=== PATIENT | female | born 1955 | race Caucasian/White ===

== ENCOUNTER 2017-02-13 11:07 | Emergency (ER) | payer SELFPAY ==
[2017-02-13 11:31] VITALS: BP 117/62
[2017-02-13] MEDS ORDERED: Aspirin Low Dose CHEW TAB* 81 MG PO ONE (11:43)
--- NOTE | 2017-02-13 15:01 | UC ---
Erin Trent SooYoung, scribed for Stefanie Beth MD on 02/13/17 at 1137 . Upper Extremity HPI - HPI Summary HPI Summary: A 61 y/o F [place] [facility] [place] c/o fall onset two weeks ago. Pt is from [place], speaks Sinhala, and son is present and assisting with additional translation. Two weeks ago, the pt's neighbor contacted pt's son, and said pt was ill. Associated sx: L shoulder pain since fall, urinary frequency for past two weeks, mild chills. Denies fever, CP, palpitations, diarrhea, constipation, melena. Pt states she fell to her left due to weakness, dizziness and was unable to get up. Denies LOC. She was going about her ADL prior to episode. Pt refused to go to the hospital at the time of the incident. She last saw her doctor approx 3 years ago, she does not have a PCP in [place]. Pt is a former lifetime smoker, quit last year. - History of Current Complaint Chief Complaint: UCUpperExtremity Stated Complaint: LEG AND ARM INJURY Time Seen by Provider: 02/13/17 11:24 Hx Obtained From: Patient, Family/Addictions Recovery Specialist - son Onset/Duration: Sudden Onset, Lasting Weeks - approx two, Still Present Severity Currently: Severe Pain Intensity: 8 Pain Scale Used: 0-10 Numeric Location Of Pain: Is Discrete @ - L shoulder Character: Aching, Throbbing, Burning - Allergies/Home Medications Allergies/Adverse Reactions: Allergies Allergy/AdvReac Type Severity Reaction Status Date / Time No Known Allergies Allergy Verified 02/13/17 14:25 PMH/Surg Hx/FS Hx/Imm Hx Previously Healthy: Yes - neg: COPD, DM, HTN, hyperthyroid - Surgical History Surgical History: None - Family History Known Family History: Negative: Cardiac Disease, Other - neg: CVA - Social History Alcohol Use: None Substance Use Type: None Smoking Status (MU): Former Smoker - lifetime smoker, quit last year Review of Systems Constitutional: Chills - mild Skin: Negative Eyes: Negative ENT: Negative Respiratory: Negative Cardiovascular: Negative Gastrointestinal: Negative Genitourinary: Frequency Motor: Negative Neurovascular: Negative Musculoskeletal: Other: - L shoulder pain Neurological: Weakness - or dizziness, possible cause of the fall Psychological: Negative All Other Systems Reviewed And Are Negative: Yes Physical Exam Triage Information Reviewed: Yes Appearance: Well-Appearing, Thin Vital Signs: Initial Vital Signs Temp 99.4 F 02/13/17 11:22 Pulse 72 02/13/17 11:22 Resp 18 02/13/17 11:22 BP 117/62 02/13/17 11:22 Pulse Ox 97 02/13/17 11:22 Vital Signs Reviewed: Yes Eye Exam: Normal ENT Exam: Normal ENT: Positive: Normal ENT inspection, Hearing grossly normal, Pharynx normal Neck exam: Normal Neck: Positive: Supple, Nontender Respiratory Exam: Normal Respiratory: Positive: Chest non-tender, Lungs clear, Normal breath sounds, No respiratory distress, No accessory muscle use Cardiovascular Exam: Normal Cardiovascular: Positive: RRR, No Murmur, Pulses Normal, Brisk Capillary Refill Abdominal Exam: Normal Abdomen Description: Positive: Nontender, No Organomegaly, Soft Bowel Sounds: Positive: Present Musculoskeletal: Positive: Other: - R axillary nerve sensation present. DP/PT 1 + equal bilat. Distal, radial and ulnar pulses present bilat. LUE: 4+ hand grasp , OK sign 5 index. LLE: Gait slow not wide base, L foot flops a bit. Neurological Exam: Other - CN 1 - 12 intact, incl + sens alcohol swab. No diplopia. DTR's 2+ equal P / BR / R Moves all ext's. Distal sens LT present x 4 ext's. Denies B/B issues. Gait steady. Psychological Exam: Normal - conversing easily and appropriately Skin Exam: Normal - no visible or reported rash Diagnostics - EKG Cardiac Rate: NL - 74 bpm Cardiac Rhythm: Sinus: Normal - NJ 151, QTC 494. No old EKG for comparison. Upper Extremity Course/Dx - Course Course Of Treatment: EMS offered and encouraged. But family (son present) declined EMS, will drive pt to ED. D/w SOLEDAD Ruiz. Aspirin 324mg po x 1. Diff dx includes (albeit not limited to), stroke / mass, cardiac, electrolyte issues. I am concerned additionally re left arm, possible injury 2/2 fall (?). - Differential Dx/Diagnosis Provider Diagnoses: Left side weakness. Left arm pain - Physician Notification/Consults Discussed Patient Care With: Daiana Ford - PARMJIT ROWE Time Discussed With Above Provider: 11:48 Instructed by Provider To: Transfer Discharge - Discharge Plan Condition: Stable Disposition: TRANS HIGHER LVL OF CARE FAC Discharge Disposition Comment: Trans to [facility] Referrals: Non Staff,Doctor [Primary Care Provider] - Additional Instructions: Please follow up with your primary care provider in 1-2 weeks. Seek medical attention for worse or new problems in the meantime. The documentation as recorded by the Erin munson SooYoung accurately reflects the service I personally performed and the decisions made by me, Stefanie Beth MD.
== END 2017-02-13 12:36 | disposition short-term general hospital (02) ==
LOC: UCEAST 11:07
DX: M62.81 Muscle weakness (generalized) (principal); M79.602 Pain in left arm; Z87.891 Personal history of nicotine dependence
CPT/HCPCS: 93005; 99202; A9270-GY; G0463

== ENCOUNTER 2017-02-13 12:40 | Inpatient (IN) | payer SELFPAY ==
--- NOTE | 2017-02-13 13:50 | RAD ---
Indication: Dizziness. Fall 3 weeks ago. LEFT body pain. Comparison: No relevant prior exams available on the [facility] PACS for comparison. Technique: Noncontrast CT vertex of skull through foramen magnum. Report: There is a RIGHT frontoparietal extra-axial fluid heterogeneous density fluid collection which crosses the coronal suture consistent with subdural hematoma. Associated mass effect primarily involving the RIGHT frontal lobe with partial effacement of the RIGHT lateral ventricle and up to 0.7 cm leftward midline shift at the level of the septum pellucidum. The basal cisterns remain patent without suggestion of downward herniation. No additional extra or intra-axial hemorrhage evident. Negative for thompson matter white matter obscuration. Unremarkable partially visualized orbital contents. Negative for calvarial or skull base fracture or suspicious focal lesion. Clear visualized paranasal sinuses and mastoid air spaces. Negative for scalp hematoma. IMPRESSION: Corresponding with the clinical history of fall 3 weeks ago there is a subacute RIGHT frontoparietal subdural hematoma with mass effect primarily involving the RIGHT frontal lobe with partial effacement of the RIGHT lateral ventricle and up to 0.7 cm leftward midline shift at the level of the septum pellucidum. Results discussed with Dr. Granados 02/13/2017 1:46 PM EDT
[2017-02-13 14:01] LABS: Hematocrit 34 % (35-47); Hemoglobin 12.3 g/dl (12.0-16.0); Mean Corpuscular HGB Conc 37 g/dl (31-36); Mean Corpuscular Hemoglobin 35 pg (27-31); Mean Corpuscular Volume 94 fL (80-97); Mean Platelet Volume 7 um3 (7.4-10.4); Red Blood Count 3.57 10^6/ul (4.0-5.4); Red Cell Distribution Width 14 % (10.5-15); White Blood Count 8.9 10^3/ul (3.5-10.8)
[2017-02-13 14:07] LABS: Comments Flag Yes
[2017-02-13 14:08] LABS: Add Diff/Slide Review? Slide Review Added
[2017-02-13 14:19] LABS: ALT 25 U/L (7-52); AST 31 U/L (13-39); Albumin 4.3 g/dL (3.2-5.2); Alkaline Phosphatase 50 U/L (34-104); Anion Gap 7 mmol/L (2-11); BUN/Creatinine Ratio 9.8 (8-20); Blood Urea Nitrogen 5 mg/dL (6-24); CO2 Carbon Dioxide 29 mmol/L (22-32); Calcium 9.2 mg/dL (8.6-10.3); Chloride 102 mmol/L (101-111); EGFR African American 157.1 (>60); EGFR Non-African American 122.2 (>60); Globulin 2.8 g/dL (2-4); Glucose 94 mg/dL (70-100); Magnesium 1.8 mg/dL (1.9-2.7); Potassium 3.8 mmol/L (3.5-5.0); Sodium 138 mmol/L (133-145); Total Protein 7.1 g/dL (6.4-8.9)
[2017-02-13 14:39] LABS: Alcohol < 10 mg/dL (<10)
[2017-02-13 14:48] LABS: TSH (Thyroid Stimulating Horm) 1.88 mcIU/mL (0.34-5.60)
--- NOTE | 2017-02-13 15:04 | RAD ---
INDICATION: Left shoulder injury COMPARISON: None TECHNIQUE: Routine frontal, Y and axial views were obtained. FINDINGS: The bony structures, joint spaces, and soft tissues are normal for age. IMPRESSION: NO ACUTE BONY FINDINGS.
--- NOTE | 2017-02-13 15:05 | RAD ---
Indication: RIGHT hip pain post fall 3 weeks ago. Comparison: No relevant prior exams available on the [facility] PACS for comparison. Technique: AP pelvis and AP and frog-leg lateral views RIGHT hip. Report: The RIGHT hip is normally aligned. No hip or pelvic fracture or joint diastases evident. Preserved hip joint spaces without significant arthropathic change. Unremarkable soft tissue contours. Peripheral vascular calcifications. IMPRESSION: No radiographic evidence for RIGHT hip fracture or other traumatic injury. As x-rays may be negative with nondisplaced hip fracture if there is persistent clinical concern MRI or in setting of contraindication to MRI or limitation in emergent access to MRI CT would be suggested.
--- NOTE | 2017-02-13 15:46 | CONSULT ---
Consult Consult: Neurosurgery consult: Date of consult: 02/13/17 Reason for consult: Right frontal subdural hematoma Referring provider: Dr. Slava Granados HPI: This is a 61 year old female with unknown past medical history who primarily resides in [place]. She recently arrived in the [place] after her son and daughter were notified of her recently falling by a neighbor. She was refusing to go to the hospital in [place] and therefore her children sent her a plane ticket to the [place]. She reports one fall 3 weeks ago and a few more falls since then. Since the first fall, she reports left upper and lower extremity weakness, difficulty walking prompting her to use a cane for support, episodes of dizziness and left shoulder pain. She also describes urinatry incontinence for the past several weeks in that she is able to feel the urge to urinate but is unable to make it to the bathroom. No fecal incontinence. The episodes of dizziness begin with a feeling of right sided head pressure that travels across the frontal head. She is unable to describe frequency of these episodes. Her children express significant concern with her safety. She denies headache, neck pain, vision changes, hearing changes, difficulty swallowing, changes in speech, chest pain, difficulty breathing, abdominal pain, nausea, vomiting, and numbness and tingling in the upper and lower extremities. Past Medical History: No known medical problems. She has not been to a primary care provider in years. Allergies: No known allergies. Home medications: None. Social history: The patient lives primarily in [place] with her boyfriend. Her son and daughter live in the [place]. She primarily speaks Macedonian although is fluent in Syriac as well. She is a former smoker, stating that she has not smoked in years although is unable to determine how many years she did smoke. Per the patient she drinks a few beers a day and per the son and daughter , she drinks 12-18 beers a day. Family history: Unknown ROS: Full ROS completed. All pertinent findings stated in HPI, all others negative. Physical exam: Vital Signs: Temp Pulse Resp BP Pulse Ox 97.4 F 76 15 110/46 97 02/13/17 12:48 02/13/17 16:00 02/13/17 16:00 02/13/17 15:30 02/13/17 16:00 General: Alert and oriented. No distress, laying comfortably on the stretcher. HEENT: Head is normocephalic and atraumatic. PERRLA, EOMI. Sclerae and slightly icteric. Gross hearing intact. Slightly dry mucus membranes. Neck: Supple, symmetric and nontender. No adenopathy. CV: Pedal and radial pulses 2+ and equal. Lungs: Breathing is nonlabored. Lungs are clear. Abdomen: Normoactive bowel sounds. Abdomen is flat and nondistended. Mild right upper quadrant tenderness. Neuro: CN II-XII intact. Speech is clear and coherent. Mild left upper and lower extremity weakness. Left mason helper strength and deltoid weakness possibly due to finger and shoulder pain. Sensation intact. Imagin. CT brain on 02/13/17 shows right frontal subdural hematoma with shift. Assessment: This is a 61 year old female with recent episodes of dizziness and left upper and lower extremity weakness beginning approximately 3 weeks ago after a fall. Right frontal subdural hematoma shown on CT brain. Mild left upper and lower extremity weakness appreciated on exam. Case discussed and plan formulated with Dr. Rodriguez. Plan discussed with Dr. Granados. Plan: 1. Admit to hospitalist service 2. Right frontal opal hole for evacuation of SDH this week. 3. Repeat CT brain in morning. 4. EKG 5. Chest x ray 6. CBC, BMP
[2017-02-13 17:49] LABS: Urine Bilirubin Negative (Negative); Urine Glucose Negative (Negative); Urine Nitrite Negative (Negative)
[2017-02-13] MEDS ORDERED: Ondansetron INJ* 2 MG/ML VIAL IV PRN (18:57)
[2017-02-13] MEDS ORDERED: Magnesium Sulfate 2 GM IV* 2 GM/50 ML BAG IVPB ONE (21:04)
[2017-02-13] MEDS: NS 0.9% 1000 ML* 1,000 ML IV SCH (21:30)
[2017-02-13] MEDS: Acetaminophen TAB* 325 MG PO PRN (21:37)
--- NOTE | 2017-02-13 22:26 | ED ---
Juliana Trent Seung-Jae, scribed for Slava Granados MD on 02/13/17 at 1407 . Dizziness - HPI Summary HPI Summary: Pt is a 61 y/o F referred from [facility] who presents to the ED with c/o dizziness s/p fall in [place] 3 weeks ago. Dizziness is characterized as lightheadedness and has been intermittent since onset. Dizziness is currently resolved. Also c/o LLE numbness and pain which radiates from the L hip as well as pain in her left shoulder area. LLE pain has been recently causing a limp. LLE pain is aggravated by standing up while her shoulder hurts without movement. Pt's son states a possibility of a TIA in [place]. History obtained from the pt and her son. - History Of Current Complaint Chief Complaint: EDDizziness Stated Complaint: DIZZINESS,LT ARM PAIN/SENT FROM [facility] Time Seen by Provider: 02/13/17 13:05 Hx Obtained From: Patient, Family/Rose Grading Supervisor - Son Onset/Duration: Suddenly Timing: Intermittent Episode Lasting Severity Initially: Severe Severity Currently: Mild Character: Lightheaded Aggravating Factor(s): Position Change, Supine To Erect Alleviating Factor(s): Nothing Associated Signs And Symptoms: Positive: Other: - Numbness and pain in the LLE; Pain in the L shoulder - Allergies/Home Medications Allergies/Adverse Reactions: Allergies Allergy/AdvReac Type Severity Reaction Status Date / Time No Known Allergies Allergy Verified 02/13/17 14:25 Home Medications: Home Medications NK [No Home Medications Reported] 02/13/17 [History Confirmed 02/13/17] PMH/Surg Hx/FS Hx/Imm Hx Previously Healthy: Yes Endocrine/Hematology History: Denies: Hx Diabetes, Hx Thyroid Disease Cardiovascular History: Denies: Hx Hypertension Respiratory History: Denies: Hx Asthma, Hx Chronic Obstructive Pulmonary Disease (COPD) GI History: Denies: Hx Ulcer Infectious Disease History: Denies: Hx Clostridium Difficile, Hx Hepatitis, Hx Human Immunodeficiency Virus (HIV), Hx of Known/Suspected MRSA, Hx Shingles, Hx Tuberculosis, Hx Known/ Suspected VRE, Hx Known/Suspected VRSA, History Other Infectious Disease, Traveled Outside the [place] in Last 30 Days - Family History Known Family History: Positive: Other - negative CVA Negative: Cardiac Disease - Social History Alcohol Use: None Substance Use Type: Reports: None Smoking Status (MU): Never Smoked Tobacco Review of Systems Positive: Arthralgia - LLE pain and L shoulder pain Neurological: Other - Dizziness (resolved) Positive: Numbness - LLE numbness All Other Systems Reviewed And Are Negative: Yes Physical Exam Triage Information Reviewed: Yes Vital Signs On Initial Exam: Initial Vitals Temp Pulse Resp BP Pulse Ox 97.4 F 80 17 117/65 99 02/13/17 12:48 02/13/17 12:48 02/13/17 12:48 02/13/17 12:48 02/13/17 12:48 Vital Signs Reviewed: Yes Appearance: Positive: Well-Appearing, No Pain Distress Skin: Positive: Warm, Skin Color Reflects Adequate Perfusion, Dry Head/Face: Positive: Normal Head/Face Inspection Eyes: Positive: Other: - Sclera Icteric ENT: Positive: Normal ENT inspection Neck: Positive: Supple, Nontender Respiratory/Lung Sounds: Positive: Clear to Auscultation, Breath Sounds Present Cardiovascular: Positive: RRR Abdomen Description: Positive: Nontender, Soft Bowel Sounds: Positive: Present Musculoskeletal: Positive: Pain @ - right LE and left shoulder area Neurological: Positive: Abnormal Gait - limp due to pain Psychiatric: Positive: Normal Diagnostics - Vital Signs Vital Signs Temp Pulse Resp BP Pulse Ox 02/13/17 12:48 97.4 F 80 17 117/65 99 - Laboratory Lab Results: Lab Results 02/13/17 02/13/17 02/13/17 Range/Units 13:50 13:50 13:50 WBC 8.9 (3.5-10.8) 10^3/ul RBC 3.57 L (4.0-5.4) 10^6/ul Hgb 12.3 (12.0-16.0) g/dl Hct 34 L (35-47) % MCV 94 (80-97) fL MCH 35 H (27-31) pg MCHC 37 H (31-36) g/dl RDW 14 (10.5-15) % Plt Count 90 L (150-450) 10^3/ul MPV 7 L (7.4-10.4) um3 Neut % (Auto) 82.0 (38-83) % Lymph % (Auto) 10.4 L (25-47) % [place] % (Auto) 7.0 (1-9) % Eos % (Auto) 0.4 (0-6) % Baso % (Auto) 0.2 (0-2) % Absolute Neuts (auto) 7.3 (1.5-7.7) 10^3/ul Absolute Lymphs (auto) 0.9 L (1.0-4.8) 10^3/ul Absolute Monos (auto) 0.6 (0-0.8) 10^3/ul Absolute Eos (auto) 0 (0-0.6) 10^3/ul Absolute Basos (auto) 0 (0-0.2) 10^3/ul Absolute Nucleated RBC 0 10^3/ul Nucleated RBC % 0 Hem Pathologist Commnt Pending INR (Anticoag Therapy) (0.89-1.11) Sodium 138 (133-145) mmol/L Potassium 3.8 (3.5-5.0) mmol/L Chloride 102 (101-111) mmol/L Carbon Dioxide 29 (22-32) mmol/L Anion Gap 7 (2-11) mmol/L BUN 5 L (6-24) mg/dL Creatinine 0.51 (0.51-0.95) mg/dL Est GFR ( Amer) 157.1 (>60) Est GFR (Non-Af Amer) 122.2 (>60) BUN/Creatinine Ratio 9.8 (8-20) Glucose 94 (70-100) mg/dL Lactic Acid 0.8 (0.5-2.0) mmol/L Calcium 9.2 (8.6-10.3) mg/dL Magnesium 1.8 L (1.9-2.7) mg/dL Total Bilirubin 3.80 H (0.2-1.0) mg/dL Direct Bilirubin 0.80 H (0.03-0.18) mg/dL AST 31 (13-39) U/L ALT 25 (7-52) U/L Alkaline Phosphatase 50 (34-104) U/L Ammonia (16-53) mol/L Troponin I 0.00 (<0.04) ng/mL Total Protein 7.1 (6.4-8.9) g/dL Albumin 4.3 (3.2-5.2) g/dL Globulin 2.8 (2-4) g/dL Albumin/Globulin Ratio 1.5 (1-3) TSH 1.88 (0.34-5.60) mcIU/mL Urine Color Urine Appearance Urine pH (5-9) Ur Specific Randolph (1.010-1.030) Urine Protein (Negative) Urine Ketones (Negative) Urine Blood (Negative) Urine Nitrate (Negative) Urine Bilirubin (Negative) Urine Urobilinogen (Negative) Ur Leukocyte Esterase (Negative) Urine Glucose (Negative) Serum Alcohol < 10 (<10) mg/dL 02/13/17 02/13/17 02/13/17 Range/Units 13:50 17:39 18:06 WBC (3.5-10.8) 10^3/ul RBC (4.0-5.4) 10^6/ul Hgb (12.0-16.0) g/dl Hct (35-47) % MCV (80-97) fL MCH (27-31) pg MCHC (31-36) g/dl RDW (10.5-15) % Plt Count (150-450) 10^3/ul MPV (7.4-10.4) um3 Neut % (Auto) (38-83) % Lymph % (Auto) (25-47) % [place] % (Auto) (1-9) % Eos % (Auto) (0-6) % Baso % (Auto) (0-2) % Absolute Neuts (auto) (1.5-7.7) 10^3/ul Absolute Lymphs (auto) (1.0-4.8) 10^3/ul Absolute Monos (auto) (0-0.8) 10^3/ul Absolute Eos (auto) (0-0.6) 10^3/ul Absolute Basos (auto) (0-0.2) 10^3/ul Absolute Nucleated RBC 10^3/ul Nucleated RBC % Hem Pathologist Commnt INR (Anticoag Therapy) 1.11 (0.89-1.11) Sodium (133-145) mmol/L Potassium (3.5-5.0) mmol/L Chloride (101-111) mmol/L Carbon Dioxide (22-32) mmol/L Anion Gap (2-11) mmol/L BUN (6-24) mg/dL Creatinine (0.51-0.95) mg/dL Est GFR ( Amer) (>60) Est GFR (Non-Af Amer) (>60) BUN/Creatinine Ratio (8-20) Glucose (70-100) mg/dL Lactic Acid (0.5-2.0) mmol/L Calcium (8.6-10.3) mg/dL Magnesium (1.9-2.7) mg/dL Total Bilirubin (0.2-1.0) mg/dL Direct Bilirubin (0.03-0.18) mg/dL AST (13-39) U/L ALT (7-52) U/L Alkaline Phosphatase (34-104) U/L Ammonia 39 (16-53) mol/L Troponin I (<0.04) ng/mL Total Protein (6.4-8.9) g/dL Albumin (3.2-5.2) g/dL Globulin (2-4) g/dL Albumin/Globulin Ratio (1-3) TSH (0.34-5.60) mcIU/mL Urine Color Yellow Urine Appearance Clear Urine pH 6.0 (5-9) Ur Specific [place] 1.006 L (1.010-1.030) Urine Protein Negative (Negative) Urine Ketones Negative (Negative) Urine Blood Negative (Negative) Urine Nitrate Negative (Negative) Urine Bilirubin Negative (Negative) Urine Urobilinogen Negative (Negative) Ur Leukocyte Esterase Negative (Negative) Urine Glucose Negative (Negative) Serum Alcohol (<10) mg/dL Result Diagrams: 02/13/17 13:50 02/13/17 13:50 Lab Statement: Any lab studies that have been ordered have been reviewed, and results considered in the medical decision making process. - Radiology Shoulder XR Xray Interpretation: No Acute Changes - Impression: No acute bony findings. Radiology Interpretation Completed By: Radiologist Hip/Pelvis XR Xray Interpretation: No Acute Changes - IMPRESSION: No radiographic evidence for RIGHT hip fracture or other traumatic injury. As x-rays may be negative with nondisplaced hip fracture if there is persistent clinical concern MRI or in setting of contraindication to MRI or limitation in emergent access to MRI CT would be suggested. Radiology Interpretation Completed By: Radiologist - CT Brain CT CT Interpretation: Positive (See Comments) - Impression: Corresponding with the clinical history of fall 3 weeks ago there is a subacute RIGHT frontopartietal subdural hematoma with mass effect primarily involving the RIGHT frontal lobe with parietal effacement of the RIGHT lateral ventricle and up to 0.7cm leftward midline shift at the level of the septum pellucidum. CT Interpretation Completed By: Radiologist - EKG 15:36 Cardiac Rate: NL - 77 bpm EKG Rhythm: Sinus Rhythm ST Segment: Normal Ectopy: None Re-Evaluation - Re-Evaluation 14:34 Re-Evaluation Time: 14:34 Change: Unchanged Dizzy Course/Dx - Course Course Of Treatment: Ms. Rosas fell a couple weeks ago and is still C/O left shoulder pain and is 'walking funny' per the family. She was found to have subacute subdural hematoma with a midline shift as well as jaundice. The hospitalists have admitted her and the neurosurgery service has seen her. - Diagnoses Provider Diagnoses: Subdural hematoma, Jaundice - Provider Notifications Discussed Care Of Patient With: Anthony Rodriguez Time Discussed With Above Provider: 14:12 Instructed by Provider To: Other - Will look at her and call back. Discussed care of pt with Dr. Rodriguez again at 1441 who will admit the pt. Discussed care of pt with Dr. James Loaiza, hospitalist, at 1422, making him aware of the pt. Discharge - Discharge Plan Condition: Stable Disposition: [facility]MITTED TO [facility] The documentation as recorded by the Juliana munson Seung-Jae accurately reflects the service I personally performed and the decisions made by , Slava Granados MD.
--- NOTE | 2017-02-14 01:31 | HP ---
HOSPITAL MEDICINE HISTORY AND PHYSICAL: DATE OF ADMISSION: 02/13/17 PRIMARY CARE PHYSICIAN: None. ATTENDING PHYSICIAN: Joan Kapoor DO * (dictation provided by Caron Carcamo NP ). CHIEF COMPLAINT: Falls with dizziness versus lightheadedness. HISTORY OF PRESENT ILLNESS: Ms. Rosas is a 61-year-old female with no known past medical history as she has not sought out medical care in her life, who presented to the hospital today with concern for episodes of falls at home with weakness and dizziness. Ms. Rosas is from [place]. Approximately 3 weeks ago while in [place], she fell. She reports having episode where she felt like things were "going black" and then found herself on the ground. She does not endorse losing consciousness. She does report hitting her head. She states that after that she felt that there was some weakness in her left arm and that she was not walking normally. It is difficult for her to describe this to me, but appears that she was dragging her left leg a little bit when walking. She thereafter had several other falls, all of which were preceded by a prodrome, which sound like she was having presyncopal episodes. She was noted by friends in [place] to not be looking well and they reached out to the family in the [place], who ultimately flew her to [place] for medical treatment. Patient arrived to [place] on Sunday this week. The patient's daughter took her, was unable to get off work yesterday to bring her to the hospital. Today when she was able to find some time free from work, she took the patient to sign up for Medicaid and then brought her here to the hospital for medical care. The patient's daughter feels like the patient "looks terrible." She has not seen her mother in about a year and feels like she looks very thin. The patient herself suggests that perhaps she has lost about 10 pounds. There is a report that the patient drinks on a daily basis. The patient reports beer drinking of about 2 beers per day. She denies ever having any issue with withdrawal from alcohol. She denies any other complaints. She has had no fevers, no chills, no cough, no shortness of breath. No nausea, no abdominal pain. She has had normal formed bowel movements. In the emergency room, Ms. Rosas had a CT of her brain, which showed that she had a "subacute right fronto-parietal subdural hematoma with mass effect primarily involving the right frontal lobe with partial effacement of the right lateral ventricle and up to 0.7 cm leftward midline shift at the level of the septum pellucidum." For this reason, Dr. Rodriguez from neurosurgical services was contacted and his physician office support assistant, Mabel Quigley, did assess the patient. Plans are for the patient to go for a planned opal hole evacuation of the subdural hematoma in the near future. In the meantime, the patient is to be admitted to the hospital for observation and medical clearance. Ms. Rosas reports that she has had these presyncopal episodes but they have only been associated with her episodes of falling. She reports pain in her left shoulder and difficulty raising her arm at the shoulder. She reports weakness in the left arm and she reports some weakness in the left leg. She has had some episodes of urinary incontinence, but this is simply because she has been having difficulty pulling down her pants when going to the rest room because of pain in her left shoulder. PAST MEDICAL HISTORY: None. MEDICATIONS: None. ALLERGIES: None. FAMILY HISTORY: Patient reports that both of her parents from old age. SOCIAL HISTORY: Patient is a former smoker, she quit about a year ago. She drinks beer on a daily basis and reports 2 beers per day. There is no report of drug use. She states her daughter, Jayen Rosas, would be her healthcare proxy. REVIEW OF SYSTEMS: A 14-point review of systems was completed with Ms. Rosas and all those not mentioned above were negative. PHYSICAL EXAMINATION GENERAL: She is alert and oriented x3. VITAL SIGNS: Temperature 99.7, heart rate 76, respiratory rate 18, O2 saturation 97% on room air, blood pressure 117/61. LUNGS: Clear to auscultation bilaterally with no accessory muscle use and good aeration. HEART: S1, S2. No murmur, rub, or gallop and regular. ABDOMEN: Soft, nontender, with bowel sounds positive x4. EXTREMITIES: No cyanosis or edema. 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 She has pain when trying to lift the arm at the shoulder. She therefore, is not able to participate well for assessment of pronator drift. She has good strength bilaterally in the lower extremities. There is no facial asymmetry. There is no focal weakness. Extraocular movements are intact. SKIN: Intact. DIAGNOSTIC STUDIES/LAB DATA: WBC 8.9, hemoglobin 12.3, hematocrit 34, platelet count 90,000. INR 1.11. Sodium 138, potassium 3.8, chloride 102, serum bicarbonate 29, BUN 5, creatinine 0.51, glucose 94, magnesium 1.8, total bili 3.8, direct bili 0.80. Urine shows no evidence of infection. Serum alcohol level is less than 10. CT brain was read per above. The patient has shoulder x-ray, which was read as follows: "No acute bony findings." Hip and pelvis x-ray was read as follows: "No radiographic evidence for right hip fracture or other traumatic injury." ASSESSMENT AND PLAN: Ms. Rosas is a 61-year-old female with no known past medical history who presents to the hospital today with concern for falls and suggestion of presyncopal episodes who was found to have a subdural hematoma , which is subacute with midline shift. Our plans are for inpatient admission with expected length of stay to be greater than 2 days for the followin. Subdural hematoma: Dr. Rodriguez's team has consulted and the plans are for the patient to have a opal hole with evacuation. In the meantime, the patient will be observed in the hospital overnight with close neurological checks in the intensive care unit. She will have a repeat CT scan in the a.m. If she develops any new neurological symptoms, we will contact Dr. Rodriguez immediately and to evaluate and reassess the patient. 2. Elevated bilirubin. The patient does report a long-term history of drinking. She has no abdominal pain to suggest that she has biliary disease, obstruction. Our plans will be to check a liver ultrasound and direct bilirubin. I note that her synthetic function is good with INR of 1.1. However , her platelets are low at 90. Unfortunately, I have no previous records to compare with and will be rechecking her labs tomorrow. 3. Syncope: The patient's description of the episodes leading to her falls suggestive of syncopal or presyncopal episodes. Plan to check a transthoracic echocardiogram but this should not hold up any urgent surgery that was needed for her subdural hematoma. In the meantime, she will have telemetry monitoring for any arrhythmias. 4. DVT prophylaxis with SCDs only. 5. Disposition to ICU. TIME SPENT: Approximately 75 minutes was spent on the admission of this patient , more than half the time was spent with the patient at the bedside reviewing the events leading up to this hospitalization, performing the physical examination, and reviewing the plan of care. CARON CARCAMO NP [id number]/[facility] #: [id number] THEO
[2017-02-14 06:21] LABS: Hematocrit 30 % (35-47); Hemoglobin 10.8 g/dl (12.0-16.0); Mean Corpuscular HGB Conc 36 g/dl (31-36); Mean Corpuscular Hemoglobin 34 pg (27-31); Mean Corpuscular Volume 94 fL (80-97); Mean Platelet Volume 7 um3 (7.4-10.4); Red Blood Count 3.17 10^6/ul (4.0-5.4); Red Cell Distribution Width 14 % (10.5-15); White Blood Count 6.4 10^3/ul (3.5-10.8)
[2017-02-14 06:22] LABS: Comments Flag Yes
--- NOTE | 2017-02-14 08:18 | RAD ---
HISTORY: Follow-up subdural hematoma COMPARISONS: 06.22 TECHNIQUE: Multiple contiguous axial CT scans were obtained of the head without intravenous contrast. FINDINGS: HEMORRHAGE/INFARCT: There is no parenchymal hemorrhage. There is no acute infarct. MASSES/SHIFT: There is subfalcine shift to the left of approximately 0.5 cm. This is similar to the previous examination EXTRA-AXIAL SPACES: Again noted is a right frontal subdural chronic subdural hematoma measuring up to 1.3 cm in depth. This is stable from the previous examination SULCI AND VENTRICLES: The sulci and ventricles are normal in size and position for the patient's stated age. CEREBRUM: There are no focal parenchymal abnormalities. BRAINSTEM: There are no focal parenchymal abnormalities. CEREBELLUM: There are no focal parenchymal abnormalities. VESSELS: The vessels are grossly normal. PARANASAL SINUSES: The paranasal sinuses are clear. ORBITS: The orbits are unremarkable. BONES AND SOFT TISSUE: No bone or soft tissue abnormalities are noted. OTHER: None IMPRESSION: AGAIN NOTED IS A SUBACUTE ON CHRONIC RIGHT FRONTAL SUBDURAL HEMATOMA WITH SUBFALCINE SHIFT TO THE LEFT. THIS IS STABLE FROM THE PREVIOUS EXAMINATION
--- NOTE | 2017-02-14 08:44 | RAD ---
HISTORY: Preop COMPARISONS: None VIEWS:1: Single frontal portable view of the chest at 8:00 AM FINDINGS: LINES AND TUBES: None. CARDIOMEDIASTINAL SILHOUETTE: The cardiomediastinal silhouette is normal for portable technique. PLEURA: The costophrenic angles are sharp. No pleural abnormalities are noted. LUNG PARENCHYMA: The lungs are clear. ABDOMEN: The upper abdomen is clear. There is no subphrenic gas. BONES AND SOFT TISSUES: No bone or soft tissue abnormalities are noted. IMPRESSION: NO ACTIVE CARDIOPULMONARY DISEASE.
[2017-02-14] MEDS: NS 0.9% 1000 ML* 1,000 ML IV SCH ×2 (09:11→20:06)
--- NOTE | 2017-02-14 09:19 | RAD ---
HISTORY: Elevated bilirubin COMPARISONS: None TECHNIQUE: Multiple transverse and longitudinal ultrasound images were obtained of the right upper quadrant of the abdomen using grayscale and color Doppler imaging. FINDINGS: LIVER: There are several hepatic parenchymal cysts, measuring up to 1.2 cm in size. There is normal hepatopedal flow of the portal vein on Doppler imaging. BILIARY TREE: There is no intrahepatic or extrahepatic biliary dilatation. The common duct measures 0.2 cm. GALLBLADDER: The gallbladder is well-visualized. There is no cholelithiasis, gallbladder wall thickening, pericholecystic fluid, or sonographic Parra sign. PANCREAS: The head of the pancreas is unremarkable. The tail of the pancreas is not well visualized secondary to overlying bowel gas. RIGHT KIDNEY: The right kidney is normal in shape, size, contour, and echogenicity. There is no hydronephrosis or nephrolithiasis. The right kidney measures 10 x 5.1 x 4.8 cm. AORTA AND IVC: The aorta and IVC are unremarkable. FLUID: There are no pleural effusions. There is no free fluid within the hepatorenal recess. OTHER FINDINGS: None. IMPRESSION: HEPATIC CYSTS. NO ACUTE SONOGRAPHIC PATHOLOGY OF THE VISUALIZED PORTION OF THE ABDOMEN.
[2017-02-14] MEDS: Acetaminophen TAB* 325 MG PO PRN ×2 (11:33→18:37)
--- NOTE | 2017-02-14 13:00 | ECHO ---
Patient: DEMETRICE SOLANO Rec#: [id number] : 1955 Date: 02/14/2017 Age: 61y Height: 157.5 cm / 62.0 in Weight: 56.7 kg / 125.0 lbs Sex: F BSA: 1.6 Room#: ICU 10 Admit Date#: 02/13/2017 Type: Inpatient Referring: Caron Carcamo NP Reading: Boyd Vences MD Consumer Affairs Manager: Renetta Melchor RN RDCS Transthoracic Echocardiogram Indication: Syncope BP: 95/59 HR: 70 Rhythm: NSR Findings History: Former smoker, ETOH use, recent syncope with fall, subdural hematoma Technical Comments: The study is technically limited due to the patient's smoking history. Completed at 1105. Left Ventricle: The left ventricular chamber size is normal. Global left ventricular wall motion and contractility are within normal limits. There is normal left ventricular systolic function. The estimated ejection fraction is 55-60%. Normal left ventricular diastolic filling is observed. Left Atrium: The left atrial chamber size is normal. Right Ventricle: The right ventricular chamber size and systolic function are within normal limits. Right Atrium: The right atrial cavity size is normal. Aortic Valve: The aortic valve is trileaflet. The aortic valve leaflets are mildly thickened. There is no evidence of aortic regurgitation. There is no evidence of aortic stenosis. Mitral Valve: The mitral valve leaflets are mildly thickened. There is trace to mild mitral regurgitation. There is no evidence of mitral stenosis. Tricuspid Valve: The tricuspid valve leaflets are normal. There is trace tricuspid regurgitation. Unable to estimate the right ventricular systolic pressure. Pulmonic Valve: The pulmonic valve structure is not well visualized. There is a trace pulmonic regurgitation. There is no pulmonic stenosis. Pericardium: There is no significant pericardial effusion. Aorta: The ascending aorta is not well visualized. There is no dilatation of the aortic arch. There is no dilation of the aortic root. Pulmonary Artery: The main pulmonary artery appears normal. Venous: The inferior vena cava appears normal in size. There is an approximate 50% respiratory change in the inferior vena cava dimension. Summary: There was not any prior study for comparison. Conclusions The estimated ejection fraction is 55-60%. There is normal left ventricular systolic function. The aortic valve leaflets are mildly thickened. There is trace to mild mitral regurgitation. There is trace tricuspid regurgitation. There is a trace pulmonic regurgitation. Measurements Name Value Normal Range RVDdMajor (2D) 3.1 cm (2.2 - 4.4) RAd ISD 4CH 4.1 cm (3.4 - 4.9) RA (A4C)W 3.4 cm (2.9 - 4.6) IVSd (2D) 0.9 cm (0.6 - 1) LVPWd (2D) 0.7 cm (0.6 - 1) LVIDd (2D) 3.8 cm (3.6 - 5.4) LVIDs (2D) 2.6 cm - LV FS (2D) 32 % (25 - 45) Aortic Annulus 1.7 cm (1.4 - 2.6) Ao root diameter (2D) 2.4 cm (2.1 - 3.5) Aortic arch 2.1 cm (1.8 - 3.4) LA dimension (AP) 2D 3.3 cm (2.3 - 3.8) LAd ISD 4CH 4.4 cm (2.9 - 5.3) LA ISD 4CH W 3.7 cm (2.5 - 4.5) Name Value Normal Range LA ESV SP 4CH (A/L) 35 ml - LA ESV SP 2CH (A/L) 38 ml - LA ESV BP (A/L) 40 ml - LA ESV BP (A/L) index 25.3 ml/m2 - LA ESV SP 4CH (MOD) 32 ml - LA ESV SP 2CH (MOD) 38 ml - Name Value Normal Range MV E-wave Vmax 1.2 m/sec - MV deceleration time 222 msec - MV A-wave Vmax 0.77 m/sec - MV E:A ratio 1.5 ratio - LV septal e' Vmax 0.12 m/sec - LV lateral e' Vmax 0.15 m/sec - LV E:e' septal ratio 10 ratio - LV E:e' lateral ratio 8 ratio - Name Value Normal Range AV Vmax 1.4 m/sec - AV VTI 37.8 cm - AV peak gradient 8 mmHg - AV mean gradient 6 mmHg - LVOT Vmax 1 m/sec - LVOT VTI 23.7 cm - LVOT peak gradient 4 mmHg - LVOT mean gradient 2 mmHg - HARJINDER Vmax 0.61 m/sec - Name Value Normal Range IVC diameter 1.3 cm - Name Value Normal Range PV Vmax 0.94 m/sec -
--- NOTE | 2017-02-14 15:09 | PN ---
Progress Note - Progress Note Date of Service: 02/14/17 SOAP: Subjective: [61 year old female with past medical history significant for alcohol abuse who presented with episodes of dizziness and recent falls. Right frontal subdural hematoma present. She reports persistent pain in the left shoulder and arm, worse with movements. She relates this to existing arthritis. She denies headache, nausea, vomiting, vision changes and episodes of dizziness since being hospitalized. No numbness, tingling, weakness or pain in the upper and lower extremities. ] Objective: [ Vital Signs: Temp Pulse Resp BP Pulse Ox 100.5 F 78 17 93/69 96 02/14/17 11:05 02/14/17 14:30 02/14/17 14:30 02/14/17 14:00 02/14/17 14:30 General: Alert and oriented. No distress. CV: Pedal pulses palpable. Radial pulses 2+ and equal. Neuro: CN II-XII intact. Motor and sensory intact. Coordination finger to nose and heel to moya intact. Speech is clear and coherent. Extremities: Full ROM throughout. Pain with ROM of LUE. ] Assessment: [Stable right frontal SDH. Repeat CT brain this morning shows SDH is unchanged. ] Plan: [1. Continue neuro checks 2. NPO after midnight tonight for possible surgery tomorrow. 3. Right frontal opal hole for SDH drainage when medically cleared. ]
--- NOTE | 2017-02-14 16:15 | PN ---
Subjective Date of Service: 02/14/17 Interval History: Pt is feeling ok. She c/o L arm/shoulder pain. She denies headache. She denies any significant weakness at this time. Objective Active Medications: Acetaminophen (Tylenol Tab*) 650 mg PO Q6H PRN PRN Reason: PAIN Last Admin: 02/14/17 11:33 Dose: 650 mg Sodium Chloride (Ns 0.9% 1000 Ml*) 1,000 mls @ 100 mls/hr IV PER RATE [place] Last Admin: 02/14/17 09:11 Dose: 100 mls/hr Ondansetron HCl (Zofran Inj*) 4 mg IV Q6H PRN PRN Reason: NAUSEA Vital Signs 02/13/17 02/13/17 02/13/17 19:00 19:30 20:00 Temperature Pulse Rate 87 96 85 Respiratory 17 15 19 Rate Blood Pressure 114/64 103/44 (mmHg) O2 Sat by Pulse 96 97 98 Oximetry 02/13/17 02/13/17 02/13/17 20:02 20:06 20:10 Temperature 98 F Pulse Rate 83 84 Respiratory 16 18 Rate Blood Pressure 103/44 103/44 (mmHg) O2 Sat by Pulse 99 Oximetry 02/13/17 02/13/17 02/13/17 20:24 20:29 20:31 Temperature Pulse Rate 81 Respiratory 15 16 Rate Blood Pressure 117/61 (mmHg) O2 Sat by Pulse 98 Oximetry 02/13/17 02/13/17 02/13/17 20:41 21:00 21:30 Temperature 99.7 F Pulse Rate 76 76 77 Respiratory 18 13 20 Rate Blood Pressure 117/61 (mmHg) O2 Sat by Pulse 97 98 97 Oximetry 02/13/17 02/13/17 02/13/17 22:00 22:30 23:00 Temperature Pulse Rate 71 71 68 Respiratory 13 18 15 Rate Blood Pressure (mmHg) O2 Sat by Pulse 96 94 95 Oximetry 02/13/17 02/13/17 02/13/17 23:30 23:46 23:50 Temperature 99.9 F 99.9 F Pulse Rate 67 Respiratory 15 14 Rate Blood Pressure (mmHg) O2 Sat by Pulse 95 Oximetry 02/14/17 02/14/17 02/14/17 00:00 00:01 00:17 Temperature Pulse Rate 68 68 70 Respiratory 14 14 15 Rate Blood Pressure 139/49 (mmHg) O2 Sat by Pulse 94 95 95 Oximetry 02/14/17 02/14/17 02/14/17 00:30 01:00 01:03 Temperature Pulse Rate 73 80 Respiratory 15 15 19 Rate Blood Pressure (mmHg) O2 Sat by Pulse 95 97 Oximetry 02/14/17 02/14/17 02/14/17 01:30 02:00 02:30 Temperature Pulse Rate 67 70 68 Respiratory 16 16 16 Rate Blood Pressure (mmHg) O2 Sat by Pulse 95 95 95 Oximetry 02/14/17 02/14/17 02/14/17 02:55 03:00 03:30 Temperature Pulse Rate 74 72 Respiratory 16 16 16 Rate Blood Pressure (mmHg) O2 Sat by Pulse 97 94 Oximetry 02/14/17 02/14/17 02/14/17 04:00 04:30 05:00 Temperature 99.6 F Pulse Rate 74 74 73 Respiratory 17 16 16 Rate Blood Pressure 95/59 (mmHg) O2 Sat by Pulse 94 95 94 Oximetry 02/14/17 02/14/17 02/14/17 05:30 05:47 06:00 Temperature Pulse Rate 73 65 Respiratory 12 16 14 Rate Blood Pressure (mmHg) O2 Sat by Pulse 96 96 Oximetry 02/14/17 02/14/17 02/14/17 06:30 07:00 07:30 Temperature Pulse Rate 67 67 67 Respiratory 13 14 15 Rate Blood Pressure (mmHg) O2 Sat by Pulse 96 95 96 Oximetry 02/14/17 02/14/17 02/14/17 07:44 08:00 09:00 Temperature 100.1 F Pulse Rate Respiratory 17 14 Rate Blood Pressure (mmHg) O2 Sat by Pulse Oximetry 02/14/17 02/14/17 02/14/17 09:05 09:07 09:30 Temperature Pulse Rate 69 66 Respiratory 14 17 Rate Blood Pressure 114/72 (mmHg) O2 Sat by Pulse 98 98 Oximetry 02/14/17 02/14/17 02/14/17 10:00 10:30 11:00 Temperature Pulse Rate 77 68 66 Respiratory 22 17 17 Rate Blood Pressure (mmHg) O2 Sat by Pulse 98 96 97 Oximetry 02/14/17 02/14/17 02/14/17 11:05 11:30 12:00 Temperature 100.5 F Pulse Rate 74 74 Respiratory 19 17 Rate Blood Pressure 102/56 (mmHg) O2 Sat by Pulse 98 97 Oximetry 02/14/17 02/14/17 02/14/17 12:20 12:30 13:00 Temperature Pulse Rate 72 69 68 Respiratory 13 13 12 Rate Blood Pressure 102/48 97/52 (mmHg) O2 Sat by Pulse 97 97 96 Oximetry 02/14/17 02/14/17 02/14/17 13:30 14:00 14:30 Temperature Pulse Rate 79 76 78 Respiratory 18 16 17 Rate Blood Pressure 93/69 (mmHg) O2 Sat by Pulse 97 97 96 Oximetry 02/14/17 15:25 Temperature 99 F Pulse Rate Respiratory Rate Blood Pressure (mmHg) O2 Sat by Pulse Oximetry Oxygen Devices in Use Now: None Appearance: Middle aged female sitting up in bed, NAD Eyes: No Scleral Icterus Ears/Nose/Mouth/Throat: Mucous Membranes Moist Respiratory: Symmetrical Chest Expansion and Respiratory Effort, Clear to Auscultation Cardiovascular: NL Sounds; No Murmurs; No JVD, RRR, No Edema Abdominal: NL Sounds; No Tenderness; No Distention Extremities: No Clubbing, Cyanosis Skin: No Nodules or Sclerosis, - - + vitiligo on hand/neck Neurological: Alert and Oriented x 3 Result Diagrams: 02/14/17 06:14 02/13/17 13:50 Additional Lab and Data: Lab Results 02/13/17 02/13/17 02/13/17 Range/Units 13:50 13:50 13:50 WBC 8.9 (3.5-10.8) 10^3/ul RBC 3.57 L (4.0-5.4) 10^6/ul Hgb 12.3 (12.0-16.0) g/dl Hct 34 L (35-47) % MCV 94 (80-97) fL MCH 35 H (27-31) pg MCHC 37 H (31-36) g/dl RDW 14 (10.5-15) % Plt Count 90 L (150-450) 10^3/ul MPV 7 L (7.4-10.4) um3 Neut % (Auto) 82.0 (38-83) % Lymph % (Auto) 10.4 L (25-47) % [place] % (Auto) 7.0 (1-9) % Eos % (Auto) 0.4 (0-6) % Baso % (Auto) 0.2 (0-2) % Absolute Neuts (auto) 7.3 (1.5-7.7) 10^3/ul Absolute Lymphs (auto) 0.9 L (1.0-4.8) 10^3/ul Absolute Monos (auto) 0.6 (0-0.8) 10^3/ul Absolute Eos (auto) 0 (0-0.6) 10^3/ul Absolute Basos (auto) 0 (0-0.2) 10^3/ul Absolute Nucleated RBC 0 10^3/ul Nucleated RBC % 0 Hem Pathologist Commnt Pending INR (Anticoag Therapy) (0.89-1.11) Sodium 138 (133-145) mmol/L Potassium 3.8 (3.5-5.0) mmol/L Chloride 102 (101-111) mmol/L Carbon Dioxide 29 (22-32) mmol/L Anion Gap 7 (2-11) mmol/L BUN 5 L (6-24) mg/dL Creatinine 0.51 (0.51-0.95) mg/dL Est GFR ( Amer) 157.1 (>60) Est GFR (Non-Af Amer) 122.2 (>60) BUN/Creatinine Ratio 9.8 (8-20) Glucose 94 (70-100) mg/dL Lactic Acid 0.8 (0.5-2.0) mmol/L Calcium 9.2 (8.6-10.3) mg/dL Magnesium 1.8 L (1.9-2.7) mg/dL Total Bilirubin 3.80 H (0.2-1.0) mg/dL Direct Bilirubin 0.80 H (0.03-0.18) mg/dL AST 31 (13-39) U/L ALT 25 (7-52) U/L Alkaline Phosphatase 50 (34-104) U/L Ammonia (16-53) mol/L Troponin I 0.00 (<0.04) ng/mL Total Protein 7.1 (6.4-8.9) g/dL Albumin 4.3 (3.2-5.2) g/dL Globulin 2.8 (2-4) g/dL Albumin/Globulin Ratio 1.5 (1-3) TSH 1.88 (0.34-5.60) mcIU/mL Urine Color Urine Appearance Urine pH (5-9) Ur Specific [place] (1.010-1.030) Urine Protein (Negative) Urine Ketones (Negative) Urine Blood (Negative) Urine Nitrate (Negative) Urine Bilirubin (Negative) Urine Urobilinogen (Negative) Ur Leukocyte Esterase (Negative) Urine Glucose (Negative) Serum Alcohol < 10 (<10) mg/dL 02/13/17 02/13/17 02/13/17 Range/Units 13:50 17:39 18:06 WBC (3.5-10.8) 10^3/ul RBC (4.0-5.4) 10^6/ul Hgb (12.0-16.0) g/dl Hct (35-47) % MCV (80-97) fL MCH (27-31) pg MCHC (31-36) g/dl RDW (10.5-15) % Plt Count (150-450) 10^3/ul MPV (7.4-10.4) um3 Neut % (Auto) (38-83) % Lymph % (Auto) (25-47) % [place] % (Auto) (1-9) % Eos % (Auto) (0-6) % Baso % (Auto) (0-2) % Absolute Neuts (auto) (1.5-7.7) 10^3/ul Absolute Lymphs (auto) (1.0-4.8) 10^3/ul Absolute Monos (auto) (0-0.8) 10^3/ul Absolute Eos (auto) (0-0.6) 10^3/ul Absolute Basos (auto) (0-0.2) 10^3/ul Absolute Nucleated RBC 10^3/ul Nucleated RBC % Hem Pathologist Commnt INR (Anticoag Therapy) 1.11 (0.89-1.11) Sodium (133-145) mmol/L Potassium (3.5-5.0) mmol/L Chloride (101-111) mmol/L Carbon Dioxide (22-32) mmol/L Anion Gap (2-11) mmol/L BUN (6-24) mg/dL Creatinine (0.51-0.95) mg/dL Est GFR ( Amer) (>60) Est GFR (Non-Af Amer) (>60) BUN/Creatinine Ratio (8-20) Glucose (70-100) mg/dL Lactic Acid (0.5-2.0) mmol/L Calcium (8.6-10.3) mg/dL Magnesium (1.9-2.7) mg/dL Total Bilirubin (0.2-1.0) mg/dL Direct Bilirubin (0.03-0.18) mg/dL AST (13-39) U/L ALT (7-52) U/L Alkaline Phosphatase (34-104) U/L Ammonia 39 (16-53) mol/L Troponin I (<0.04) ng/mL Total Protein (6.4-8.9) g/dL Albumin (3.2-5.2) g/dL Globulin (2-4) g/dL Albumin/Globulin Ratio (1-3) TSH (0.34-5.60) mcIU/mL Urine Color Yellow Urine Appearance Clear Urine pH 6.0 (5-9) Ur Specific [place] 1.006 L (1.010-1.030) Urine Protein Negative (Negative) Urine Ketones Negative (Negative) Urine Blood Negative (Negative) Urine Nitrate Negative (Negative) Urine Bilirubin Negative (Negative) Urine Urobilinogen Negative (Negative) Ur Leukocyte Esterase Negative (Negative) Urine Glucose Negative (Negative) Serum Alcohol (<10) mg/dL Microbiology and Other Data: Microbiology 02/13/17 21:30 Nasal Screen MRSA (PCR)(AIM[facility]) - Final Nasal Mrsa Negative Assess/Plan/Problems-Billing Ms Rosas is a 61 yo F who has a h/o alcohol abuse who presented to the ER approximately 3 weeks after having a fall in [place] (pt's home) with resultant concern for neurologic issues by her daughter and was found to have a subacute right frontal SDH. - Patient Problems (1) Acute subdural hematoma Current Visit: Yes Status: Acute Code(s): I62.01 - NONTRAUMATIC ACUTE SUBDURAL HEMORRHAGE SNOMED Code(s): 96562437 Comment: The patient is medically optimized for surgery. Her echo is quite good with no significant findings. EKG is without any concerning findings. She is able to ambulate (prior to fall 3 weeks ago) without any chest pain or SOB. The patient is mildly thrombocytopenic but stable for a opal hole tomorrow. Continue neuro checks q2hr. (2) Thrombocytopenia Current Visit: Yes Status: Acute Code(s): D69.6 - THROMBOCYTOPENIA, UNSPECIFIED SNOMED Code(s): 643388618 Comment: ? secondary to EtOH use. Continue to follow. (3) Hyperbilirubinemia Current Visit: Yes Status: Acute Code(s): E80.6 - OTHER DISORDERS OF BILIRUBIN METABOLISM SNOMED Code(s): 99763545 Comment: Likely related to hemolysis of the SDH. Liver ultrasound shows hepatic cysts but nothing to explain the hyperbilirubinemia. (4) Alcohol abuse Current Visit: Yes Status: Acute Code(s): F10.10 - ALCOHOL ABUSE, UNCOMPLICATED SNOMED Code(s): 22690837 Comment: There have been no signs of EtOH withdrawal. Continue to monitor. (5) DVT prophylaxis Current Visit: Yes Status: Acute Code(s): TMP6318 - SNOMED Code(s): 163591808 Comment: SCDs (6) Full code status Current Visit: Yes Status: Acute Code(s): Z78.9 - OTHER SPECIFIED HEALTH STATUS SNOMED Code(s): 904218203
[2017-02-14] MEDS ORDERED: NS 0.9% 500 ML BAG* 500 ML IV ONE (22:09)
[2017-02-15] MEDS: NS 0.9% 1000 ML* 1,000 ML IV SCH ×3 (01:01→14:05)
[2017-02-15] MEDS: Acetaminophen TAB* 325 MG PO PRN (01:08)
[2017-02-15 05:48] LABS: Hematocrit 29 % (35-47); Hemoglobin 10.4 g/dl (12.0-16.0); Mean Corpuscular HGB Conc 35 g/dl (31-36); Mean Corpuscular Hemoglobin 34 pg (27-31); Mean Corpuscular Volume 97 fL (80-97); Mean Platelet Volume 7 um3 (7.4-10.4); Red Blood Count 3.02 10^6/ul (4.0-5.4); Red Cell Distribution Width 14 % (10.5-15); White Blood Count 5.1 10^3/ul (3.5-10.8)
[2017-02-15 05:51] LABS: Comments Flag Yes
[2017-02-15 06:03] LABS: BUN/Creatinine Ratio 15.2 (8-20); Calcium 8.4 mg/dL (8.6-10.3); EGFR Non-African American 137.6 (>60); Potassium 3.7 mmol/L (3.5-5.0)
--- NOTE | 2017-02-15 08:29 | PN ---
Subjective Date of Service: 02/15/17 Interval History: Pt is feeling ok. She c/o pain in her L shoulder. She denies headache or weakness. No change in vision. Objective Active Medications: Acetaminophen (Tylenol Tab*) 650 mg PO Q6H PRN PRN Reason: PAIN Last Admin: 02/15/17 01:08 Dose: 650 mg Sodium Chloride (Ns 0.9% 1000 Ml*) 1,000 mls @ 100 mls/hr IV PER RATE [place] Last Admin: 02/15/17 01:01 Dose: 100 mls/hr Ondansetron HCl (Zofran Inj*) 4 mg IV Q6H PRN PRN Reason: NAUSEA Vital Signs 02/14/17 02/14/17 02/14/17 09:00 09:05 09:07 Temperature Pulse Rate 69 Respiratory 14 14 Rate Blood Pressure 114/72 (mmHg) O2 Sat by Pulse 98 Oximetry 02/14/17 02/14/17 02/14/17 09:30 10:00 10:30 Temperature Pulse Rate 66 77 68 Respiratory 17 22 17 Rate Blood Pressure (mmHg) O2 Sat by Pulse 98 98 96 Oximetry 02/14/17 02/14/17 02/14/17 11:00 11:05 11:30 Temperature 100.5 F Pulse Rate 66 74 Respiratory 17 19 Rate Blood Pressure (mmHg) O2 Sat by Pulse 97 98 Oximetry 02/14/17 02/14/17 02/14/17 12:00 12:20 12:30 Temperature Pulse Rate 74 72 69 Respiratory 17 13 13 Rate Blood Pressure 102/56 102/48 (mmHg) O2 Sat by Pulse 97 97 97 Oximetry 02/14/17 02/14/17 02/14/17 13:00 13:30 14:00 Temperature Pulse Rate 68 79 76 Respiratory 12 18 16 Rate Blood Pressure 97/52 93/69 (mmHg) O2 Sat by Pulse 96 97 97 Oximetry 02/14/17 02/14/17 02/14/17 14:30 15:00 15:25 Temperature 99 F Pulse Rate 78 77 Respiratory 17 17 Rate Blood Pressure 96/46 (mmHg) O2 Sat by Pulse 96 95 Oximetry 02/14/17 02/14/17 02/14/17 15:30 16:00 16:30 Temperature Pulse Rate 77 72 Respiratory 18 19 18 Rate Blood Pressure 92/50 (mmHg) O2 Sat by Pulse 97 97 Oximetry 02/14/17 02/14/17 02/14/17 17:00 17:30 18:00 Temperature Pulse Rate 88 72 70 Respiratory 21 18 21 Rate Blood Pressure 103/67 100/57 (mmHg) O2 Sat by Pulse 99 96 97 Oximetry 02/14/17 02/14/17 02/14/17 18:30 19:00 19:30 Temperature Pulse Rate 78 76 80 Respiratory 18 15 22 Rate Blood Pressure 93/49 (mmHg) O2 Sat by Pulse 97 97 97 Oximetry 02/14/17 02/14/17 02/14/17 19:59 20:00 20:30 Temperature 99.9 F Pulse Rate 84 78 Respiratory 20 17 18 Rate Blood Pressure 96/52 (mmHg) O2 Sat by Pulse 97 95 Oximetry 02/14/17 02/14/17 02/14/17 21:00 21:02 21:05 Temperature Pulse Rate 75 75 76 Respiratory 18 19 19 Rate Blood Pressure 84/47 80/45 85/47 (mmHg) O2 Sat by Pulse 95 96 95 Oximetry 02/14/17 02/14/17 02/14/17 21:09 21:30 22:00 Temperature Pulse Rate 77 72 66 Respiratory 17 17 17 Rate Blood Pressure 88/49 77/54 (mmHg) O2 Sat by Pulse 95 96 96 Oximetry 02/14/17 02/14/17 02/14/17 22:30 23:00 23:04 Temperature Pulse Rate 62 62 63 Respiratory 17 15 15 Rate Blood Pressure 98/52 (mmHg) O2 Sat by Pulse 95 96 96 Oximetry 02/14/17 02/14/17 02/15/17 23:30 23:48 00:00 Temperature 99.3 F Pulse Rate 65 69 Respiratory 16 14 16 Rate Blood Pressure (mmHg) O2 Sat by Pulse 93 96 Oximetry 02/15/17 02/15/17 02/15/17 00:01 00:30 00:57 Temperature Pulse Rate 75 67 Respiratory 19 16 16 Rate Blood Pressure 95/56 (mmHg) O2 Sat by Pulse 96 96 Oximetry 02/15/17 02/15/17 02/15/17 01:00 01:30 02:00 Temperature Pulse Rate 67 66 64 Respiratory 15 16 15 Rate Blood Pressure 102/49 93/51 (mmHg) O2 Sat by Pulse 93 94 94 Oximetry 02/15/17 02/15/17 02/15/17 02:30 03:00 03:30 Temperature Pulse Rate 66 63 70 Respiratory 15 15 14 Rate Blood Pressure 103/54 (mmHg) O2 Sat by Pulse 95 94 95 Oximetry 02/15/17 02/15/17 02/15/17 04:00 04:30 05:00 Temperature 98.7 F Pulse Rate 66 61 65 Respiratory 15 14 15 Rate Blood Pressure 105/58 122/70 (mmHg) O2 Sat by Pulse 95 95 95 Oximetry 02/15/17 02/15/17 02/15/17 05:30 06:00 06:30 Temperature Pulse Rate 70 65 62 Respiratory 15 14 15 Rate Blood Pressure 106/52 (mmHg) O2 Sat by Pulse 95 95 95 Oximetry 02/15/17 02/15/17 02/15/17 07:00 07:30 07:45 Temperature 99.0 F Pulse Rate 70 62 Respiratory 14 13 Rate Blood Pressure 112/75 (mmHg) O2 Sat by Pulse 95 95 Oximetry 02/15/17 02/15/17 02/15/17 07:56 08:00 08:14 Temperature Pulse Rate 67 Respiratory 15 16 15 Rate Blood Pressure (mmHg) O2 Sat by Pulse 96 Oximetry Oxygen Devices in Use Now: None Appearance: Middle aged female sitting up in bed, NAD Eyes: No Scleral Icterus Ears/Nose/Mouth/Throat: Mucous Membranes Moist Respiratory: Symmetrical Chest Expansion and Respiratory Effort, Clear to Auscultation - diminished breath sounds Cardiovascular: NL Sounds; No Murmurs; No JVD, RRR, No Edema Abdominal: NL Sounds; No Tenderness; No Distention Extremities: No Clubbing, Cyanosis Skin: No Rash or Ulcers, No Nodules or Sclerosis Neurological: Alert and Oriented x 3 Result Diagrams: 02/15/17 05:40 02/15/17 05:40 Additional Lab and Data: Lab Results 02/13/17 02/13/17 02/13/17 Range/Units 13:50 13:50 13:50 WBC 8.9 (3.5-10.8) 10^3/ul RBC 3.57 L (4.0-5.4) 10^6/ul Hgb 12.3 (12.0-16.0) g/dl Hct 34 L (35-47) % MCV 94 (80-97) fL MCH 35 H (27-31) pg MCHC 37 H (31-36) g/dl RDW 14 (10.5-15) % Plt Count 90 L (150-450) 10^3/ul MPV 7 L (7.4-10.4) um3 Neut % (Auto) 82.0 (38-83) % Lymph % (Auto) 10.4 L (25-47) % [place] % (Auto) 7.0 (1-9) % Eos % (Auto) 0.4 (0-6) % Baso % (Auto) 0.2 (0-2) % Absolute Neuts (auto) 7.3 (1.5-7.7) 10^3/ul Absolute Lymphs (auto) 0.9 L (1.0-4.8) 10^3/ul Absolute Monos (auto) 0.6 (0-0.8) 10^3/ul Absolute Eos (auto) 0 (0-0.6) 10^3/ul Absolute Basos (auto) 0 (0-0.2) 10^3/ul Absolute Nucleated RBC 0 10^3/ul Nucleated RBC % 0 Hem Pathologist Commnt Pending INR (Anticoag Therapy) (0.89-1.11) Sodium 138 (133-145) mmol/L Potassium 3.8 (3.5-5.0) mmol/L Chloride 102 (101-111) mmol/L Carbon Dioxide 29 (22-32) mmol/L Anion Gap 7 (2-11) mmol/L BUN 5 L (6-24) mg/dL Creatinine 0.51 (0.51-0.95) mg/dL Est GFR ( Amer) 157.1 (>60) Est GFR (Non-Af Amer) 122.2 (>60) BUN/Creatinine Ratio 9.8 (8-20) Glucose 94 (70-100) mg/dL Lactic Acid 0.8 (0.5-2.0) mmol/L Calcium 9.2 (8.6-10.3) mg/dL Magnesium 1.8 L (1.9-2.7) mg/dL Total Bilirubin 3.80 H (0.2-1.0) mg/dL Direct Bilirubin 0.80 H (0.03-0.18) mg/dL AST 31 (13-39) U/L ALT 25 (7-52) U/L Alkaline Phosphatase 50 (34-104) U/L Ammonia (16-53) mol/L Troponin I 0.00 (<0.04) ng/mL Total Protein 7.1 (6.4-8.9) g/dL Albumin 4.3 (3.2-5.2) g/dL Globulin 2.8 (2-4) g/dL Albumin/Globulin Ratio 1.5 (1-3) TSH 1.88 (0.34-5.60) mcIU/mL Urine Color Urine Appearance Urine pH (5-9) Ur Specific [place] (1.010-1.030) Urine Protein (Negative) Urine Ketones (Negative) Urine Blood (Negative) Urine Nitrate (Negative) Urine Bilirubin (Negative) Urine Urobilinogen (Negative) Ur Leukocyte Esterase (Negative) Urine Glucose (Negative) Serum Alcohol < 10 (<10) mg/dL 02/13/17 02/13/17 02/13/17 Range/Units 13:50 17:39 18:06 WBC (3.5-10.8) 10^3/ul RBC (4.0-5.4) 10^6/ul Hgb (12.0-16.0) g/dl Hct (35-47) % MCV (80-97) fL MCH (27-31) pg MCHC (31-36) g/dl RDW (10.5-15) % Plt Count (150-450) 10^3/ul MPV (7.4-10.4) um3 Neut % (Auto) (38-83) % Lymph % (Auto) (25-47) % [place] % (Auto) (1-9) % Eos % (Auto) (0-6) % Baso % (Auto) (0-2) % Absolute Neuts (auto) (1.5-7.7) 10^3/ul Absolute Lymphs (auto) (1.0-4.8) 10^3/ul Absolute Monos (auto) (0-0.8) 10^3/ul Absolute Eos (auto) (0-0.6) 10^3/ul Absolute Basos (auto) (0-0.2) 10^3/ul Absolute Nucleated RBC 10^3/ul Nucleated RBC % Hem Pathologist Commnt INR (Anticoag Therapy) 1.11 (0.89-1.11) Sodium (133-145) mmol/L Potassium (3.5-5.0) mmol/L Chloride (101-111) mmol/L Carbon Dioxide (22-32) mmol/L Anion Gap (2-11) mmol/L BUN (6-24) mg/dL Creatinine (0.51-0.95) mg/dL Est GFR ( Amer) (>60) Est GFR (Non-Af Amer) (>60) BUN/Creatinine Ratio (8-20) Glucose (70-100) mg/dL Lactic Acid (0.5-2.0) mmol/L Calcium (8.6-10.3) mg/dL Magnesium (1.9-2.7) mg/dL Total Bilirubin (0.2-1.0) mg/dL Direct Bilirubin (0.03-0.18) mg/dL AST (13-39) U/L ALT (7-52) U/L Alkaline Phosphatase (34-104) U/L Ammonia 39 (16-53) mol/L Troponin I (<0.04) ng/mL Total Protein (6.4-8.9) g/dL Albumin (3.2-5.2) g/dL Globulin (2-4) g/dL Albumin/Globulin Ratio (1-3) TSH (0.34-5.60) mcIU/mL Urine Color Yellow Urine Appearance Clear Urine pH 6.0 (5-9) Ur Specific [place] 1.006 L (1.010-1.030) Urine Protein Negative (Negative) Urine Ketones Negative (Negative) Urine Blood Negative (Negative) Urine Nitrate Negative (Negative) Urine Bilirubin Negative (Negative) Urine Urobilinogen Negative (Negative) Ur Leukocyte Esterase Negative (Negative) Urine Glucose Negative (Negative) Serum Alcohol (<10) mg/dL Microbiology and Other Data: Microbiology 02/13/17 21:30 Nasal Screen MRSA (PCR)(AIMEE) - Final Nasal Mrsa Negative Assess/Plan/Problems-Billing Ms Rosas is a 61 yo F who has a h/o alcohol abuse who presented to the ER approximately 3 weeks after having a fall in [place] (pt's home) with resultant concern for neurologic issues by her daughter and was found to have a subacute right frontal SDH. - Patient Problems (1) Acute subdural hematoma Current Visit: Yes Status: Acute Code(s): I62.01 - NONTRAUMATIC ACUTE SUBDURAL HEMORRHAGE SNOMED Code(s): 13874965 Comment: The patient is medically optimized for surgery. Plan is for opal hole today with hematoma evacuation. Continue to follow neuro checks. (2) Thrombocytopenia Current Visit: Yes Status: Acute Code(s): D69.6 - THROMBOCYTOPENIA, UNSPECIFIED SNOMED Code(s): 524173150 Comment: Plt count is stable. Continue to monitor. (3) Hyperbilirubinemia Current Visit: Yes Status: Acute Code(s): E80.6 - OTHER DISORDERS OF BILIRUBIN METABOLISM SNOMED Code(s): 05688673 Comment: Likely related to hemolysis of the SDH. Repeat bilirubin to be added on to this AMs labs. (4) Alcohol abuse Current Visit: Yes Status: Acute Code(s): F10.10 - ALCOHOL ABUSE, UNCOMPLICATED SNOMED Code(s): 55943011 Comment: There have been no signs of EtOH withdrawal. Continue to monitor. (5) DVT prophylaxis Current Visit: Yes Status: Acute Code(s): SFF5358 - SNOMED Code(s): 202680014 Comment: SCDs (6) Full code status Current Visit: Yes Status: Acute Code(s): Z78.9 - OTHER SPECIFIED HEALTH STATUS SNOMED Code(s): 829803931
[2017-02-15 08:46] LABS: Albumin 3.5 g/dL (3.2-5.2); Direct Bilirubin 0.6 mg/dL (0.03-0.18); Globulin 2.3 g/dL (2-4); Indirect Bilirubin 1.7 mg/dL (0.3-1.0); Total Bilirubin 2.3 mg/dL (0.2-1.0); Total Protein 5.8 g/dL (6.4-8.9)
[2017-02-15] MEDS: Morphine INJ* 2 MG/ML 1 ML SYRINGE IV PRN ×3 (08:58→19:31)
[2017-02-15] MEDS ORDERED: Buffered Lidocaine 0.9% SYRIN* 5 ML/SYR SYRINGE INTRADERM ONE (11:00)
[2017-02-15] MEDS ORDERED: fentaNYL* 50 MCG/ML 2 ML VIAL (100 MCG VIAL) IV PRN (11:01)
[2017-02-15] MEDS ORDERED: Acetaminophen TAB* 325 MG PO PRN (11:01)
[2017-02-15] MEDS ORDERED: PROCHLORPERAZINE INJ 5 MG/ML 2 ML VIAL IV PRN (11:01)
[2017-02-15] MEDS ORDERED: Ondansetron INJ* 2 MG/ML VIAL IV PRN (11:01)
[2017-02-15] MEDS ORDERED: ceFAZolin 2 GM PREMIX(*) 2 GM/50 ML BAG IVPB ONE (11:58)
[2017-02-15] MEDS ORDERED: Thrombin 5,000 UNITS* 1 APPLIC KIT - topical use - TOPICAL ONE (12:13)
[2017-02-15] MEDS ORDERED: Bupivacaine 0.5% W/EPI SDV* 10 ML VIAL INJ ONE (12:13)
[2017-02-15] MEDS ORDERED: fentaNYL* 50 MCG/ML 2 ML VIAL (100 MCG VIAL) ONE (12:25)
[2017-02-15] MEDS ORDERED: Lidocaine 2% PF * 5 ML VIAL ONE (13:00)
[2017-02-15] MEDS ORDERED: Phenylephrine IV* 40 MCG/ML 10 ML SYRINGE ONE (13:00)
[2017-02-15] MEDS ORDERED: Propofol* 10 MG/ML 20 ML BTL IV PUSH ONE (13:00)
[2017-02-15] MEDS ORDERED: Famotidine IV* 10 MG/ML 2 ML (20 mg) ONE (13:00)
[2017-02-15] MEDS ORDERED: Dexamethasone IV* 4 MG/ML 1 ML (4 MG) ONE (13:00)
[2017-02-15] MEDS ORDERED: EPHEDrine (Pressors)* 50 MG/ML VIAL ONE (13:01)
[2017-02-15] MEDS ORDERED: PHENYTOIN IV ONE ×2 (14:00→14:03)
[2017-02-15] MEDS ORDERED: NS 0.9% IV ONE ×2 (14:00→14:03)
[2017-02-15] MEDS ORDERED: Haloperidol INJ IV/IM* 5 MG/ML AMP IV SLOW PU ONE (16:36)
[2017-02-16] MEDS: Phenytoin CAP(*) 100 MG CAP.ER PO SCH ×3 (00:26→23:45)
[2017-02-16] MEDS: Acetaminophen TAB* 325 MG PO PRN ×4 (00:34→18:53)
--- NOTE | 2017-02-16 08:16 | RAD ---
HISTORY: Postop subdural hematoma COMPARISONS: February 16, 2017 TECHNIQUE: Multiple contiguous axial CT scans were obtained of the head without intravenous contrast. FINDINGS: HEMORRHAGE/INFARCT: There is a right frontal subdural hematoma further described below. Elsewhere, there is no hemorrhage or acute infarct. MASSES/SHIFT: There is minimal subfalcine shift to the left, decreased from the previous examination EXTRA-AXIAL SPACES: There is a right frontal subdural hematoma with acute and subacute blood. This measures up to 2.1 cm in depth. A surgical drain is noted. There is a small amount of pneumocephalus. SULCI AND VENTRICLES: The sulci and ventricles are normal in size and position for the patient's stated age. CEREBRUM: There are no focal parenchymal abnormalities. BRAINSTEM: There are no focal parenchymal abnormalities. CEREBELLUM: There are no focal parenchymal abnormalities. VESSELS: The vessels are grossly normal. PARANASAL SINUSES: The paranasal sinuses are clear. ORBITS: The orbits are unremarkable. BONES AND SOFT TISSUE: There is postsurgical change to the skull OTHER: None IMPRESSION: RIGHT FRONTAL SUBDURAL HEMATOMA. THERE IS A SURGICAL DRAIN NOTED IN THE COLLECTION. THERE IS MINIMAL SUBFALCINE SHIFT TO THE LEFT, DECREASED FROM THE PREVIOUS EXAMINATION
--- NOTE | 2017-02-16 08:21 | PN ---
Progress Note - Progress Note Date of Service: 02/16/17 SOAP: Subjective: [S/p right frontal opal hole for drainage of subacute SDH. POD #1. Complains of left shoulder pain and mild pain at insertion of drain. Denies headache, nausea, vomiting, chest pain and new numbness, tingling and weakness in the lower extremities. She is eager to be able to sit up and get out of bed to eat meals. No seizures. ] Objective: [ Vital Signs: Temp Pulse Resp BP Pulse Ox 98.9 F 71 15 88/44 96 02/16/17 04:00 02/16/17 07:00 02/16/17 07:28 02/16/17 07:00 02/16/17 07:00 General: Alert and oriented. No distress. Head: Subdural drain removed today without complication. Incision is intact with gerardo and without infection. No swelling. Neuro: CN II-XII intact. Motor and sensory intact. Coordination intact. Extremities: Limited ROM of LUE secondary to shoulder pain. ] Assessment: [Satisfactory post-op at this time. Drain removed today. Repeat CT brain today shows improvement of SDH. ] Plan: [1. Continue to monitor neuro checks in ICU 2. Out of bed to chair 3. Saline lock IV 4. No head of bed restriction ]
--- NOTE | 2017-02-16 08:22 | PN ---
Subjective Date of Service: 02/16/17 Interval History: Pt is feeling ok. She describes minimal pain to her R frontal area. Her biggest complaint is that she is hungry and would like coffee. She states she continues to have pain in her L shoulder/humerus. Objective Active Medications: Acetaminophen (Tylenol Tab*) 650 mg PO Q6H PRN PRN Reason: PAIN Last Admin: 02/16/17 06:33 Dose: 650 mg Sodium Chloride (Ns 0.9% 1000 Ml*) 1,000 mls @ 25 mls/hr IV PER RATE [facility] Last Admin: 02/15/17 14:05 Dose: 25 mls/hr Morphine Sulfate (Morphine Inj (Syringe)*) 2 mg IV Q4H PRN PRN Reason: PAIN - MILD Last Admin: 02/15/17 19:31 Dose: 2 mg Ondansetron HCl (Zofran Inj*) 4 mg IV Q6H PRN PRN Reason: NAUSEA Phenytoin Sodium (Dilantin Cap(*)) 100 mg PO Q12H [facility] Last Admin: 02/16/17 00:26 Dose: 100 mg Vital Signs 02/15/17 02/15/17 02/15/17 08:30 08:58 09:00 Temperature Pulse Rate 63 62 Respiratory 16 20 18 Rate Blood Pressure 119/59 (mmHg) O2 Sat by Pulse 95 97 Oximetry 02/15/17 02/15/17 02/15/17 09:21 09:30 10:00 Temperature Pulse Rate 65 70 Respiratory 15 14 17 Rate Blood Pressure 112/53 (mmHg) O2 Sat by Pulse 96 96 Oximetry 02/15/17 02/15/17 02/15/17 10:18 10:30 11:00 Temperature Pulse Rate 66 Respiratory 15 15 Rate Blood Pressure 121/56 (mmHg) O2 Sat by Pulse 95 Oximetry 02/15/17 02/15/17 02/15/17 11:11 11:30 12:00 Temperature Pulse Rate 68 67 66 Respiratory 15 13 14 Rate Blood Pressure 121/57 (mmHg) O2 Sat by Pulse 96 97 97 Oximetry 02/15/17 02/15/17 02/15/17 13:30 13:36 13:39 Temperature Pulse Rate 87 88 87 Respiratory 16 14 18 Rate Blood Pressure 123/59 134/62 (mmHg) O2 Sat by Pulse 100 100 100 Oximetry 02/15/17 02/15/17 02/15/17 13:40 13:45 13:50 Temperature 98.1 F Pulse Rate 85 85 83 Respiratory 17 16 15 Rate Blood Pressure 134/106 130/67 126/67 (mmHg) O2 Sat by Pulse 100 99 98 Oximetry 02/15/17 02/15/17 02/15/17 13:55 14:00 14:15 Temperature Pulse Rate 77 78 76 Respiratory 16 15 16 Rate Blood Pressure 141/58 132/61 126/59 (mmHg) O2 Sat by Pulse 95 97 97 Oximetry 02/15/17 02/15/17 02/15/17 14:29 14:30 14:31 Temperature Pulse Rate 80 80 Respiratory 16 17 Rate Blood Pressure 140/70 (mmHg) O2 Sat by Pulse 97 97 Oximetry 02/15/17 02/15/17 02/15/17 14:37 14:45 14:48 Temperature Pulse Rate 81 Respiratory 17 15 20 Rate Blood Pressure 126/70 (mmHg) O2 Sat by Pulse 96 Oximetry 02/15/17 02/15/17 02/15/17 15:00 15:01 15:15 Temperature Pulse Rate 79 78 Respiratory 11 14 Rate Blood Pressure 123/62 (mmHg) O2 Sat by Pulse 97 97 97 Oximetry 02/15/17 02/15/17 02/15/17 15:30 15:43 16:00 Temperature 99.6 F Pulse Rate 80 82 Respiratory 14 23 Rate Blood Pressure 124/45 (mmHg) O2 Sat by Pulse 97 97 Oximetry 02/15/17 02/15/17 02/15/17 16:30 17:00 17:30 Temperature Pulse Rate 78 73 75 Respiratory 16 13 15 Rate Blood Pressure 112/63 (mmHg) O2 Sat by Pulse 95 95 94 Oximetry 02/15/17 02/15/17 02/15/17 18:00 18:02 18:30 Temperature Pulse Rate 75 76 80 Respiratory 15 15 15 Rate Blood Pressure 44/30 114/59 (mmHg) O2 Sat by Pulse 94 95 95 Oximetry 02/15/17 02/15/17 02/15/17 19:00 19:30 19:31 Temperature Pulse Rate 84 82 Respiratory 22 17 13 Rate Blood Pressure 105/62 (mmHg) O2 Sat by Pulse 95 95 Oximetry 02/15/17 02/15/17 02/15/17 19:33 20:00 20:30 Temperature 98.5 F Pulse Rate 79 77 Respiratory 18 14 12 Rate Blood Pressure 115/63 (mmHg) O2 Sat by Pulse 95 95 Oximetry 02/15/17 02/15/17 02/15/17 21:00 21:30 22:00 Temperature Pulse Rate 76 77 79 Respiratory 13 13 15 Rate Blood Pressure 118/62 102/52 (mmHg) O2 Sat by Pulse 95 96 96 Oximetry 02/15/17 02/15/17 02/15/17 22:30 23:00 23:23 Temperature Pulse Rate 74 73 73 Respiratory 15 14 23 Rate Blood Pressure 112/62 (mmHg) O2 Sat by Pulse 95 95 95 Oximetry 02/15/17 02/15/17 02/16/17 23:26 23:30 00:00 Temperature 98.9 F Pulse Rate 74 74 73 Respiratory 14 16 16 Rate Blood Pressure (mmHg) O2 Sat by Pulse 95 95 96 Oximetry 02/16/17 02/16/17 02/16/17 00:02 00:30 00:57 Temperature Pulse Rate 75 74 Respiratory 19 13 17 Rate Blood Pressure 111/61 (mmHg) O2 Sat by Pulse 96 97 Oximetry 02/16/17 02/16/17 02/16/17 01:00 01:30 02:00 Temperature Pulse Rate 74 75 66 Respiratory 16 12 14 Rate Blood Pressure 103/56 94/52 (mmHg) O2 Sat by Pulse 95 95 96 Oximetry 02/16/17 02/16/17 02/16/17 02:30 02:54 03:00 Temperature Pulse Rate 70 65 Respiratory 20 15 14 Rate Blood Pressure 88/51 (mmHg) O2 Sat by Pulse 97 95 Oximetry 02/16/17 02/16/17 02/16/17 03:30 04:00 04:30 Temperature 98.9 F Pulse Rate 65 66 68 Respiratory 12 13 17 Rate Blood Pressure 90/51 (mmHg) O2 Sat by Pulse 96 96 95 Oximetry 02/16/17 02/16/17 02/16/17 04:50 04:59 05:00 Temperature Pulse Rate 66 Respiratory 14 14 Rate Blood Pressure 98/51 (mmHg) O2 Sat by Pulse 96 Oximetry 02/16/17 02/16/17 02/16/17 05:01 05:30 06:00 Temperature Pulse Rate 65 65 68 Respiratory 13 17 16 Rate Blood Pressure 100/55 (mmHg) O2 Sat by Pulse 97 97 97 Oximetry 02/16/17 02/16/1717 06:30 07:00 07:28 Temperature Pulse Rate 67 71 Respiratory 15 13 15 Rate Blood Pressure 88/44 (mmHg) O2 Sat by Pulse 96 96 Oximetry 02/16/17 02/16/17 02/16/17 07:30 07:31 08:00 Temperature Pulse Rate 71 74 69 Respiratory 20 18 17 Rate Blood Pressure 89/52 100/56 (mmHg) O2 Sat by Pulse 97 97 98 Oximetry 02/16/17 08:16 Temperature Pulse Rate Respiratory 14 Rate Blood Pressure (mmHg) O2 Sat by Pulse Oximetry Oxygen Devices in Use Now: None Appearance: Middle aged female sitting up in bed, NAD Eyes: No Scleral Icterus Ears/Nose/Mouth/Throat: Mucous Membranes Moist Respiratory: Symmetrical Chest Expansion and Respiratory Effort, Clear to Auscultation Cardiovascular: NL Sounds; No Murmurs; No JVD, RRR, No Edema Abdominal: NL Sounds; No Tenderness; No Distention Extremities: No Clubbing, Cyanosis Skin: No Nodules or Sclerosis, - - R frontal area covered in clean dry gauze, + vitiligo Neurological: Alert and Oriented x 3 Result Diagrams: 02/15/17 05:40 02/15/17 05:40 Additional Lab and Data: Lab Results 02/13/17 02/13/17 02/13/17 Range/Units 13:50 13:50 13:50 WBC 8.9 (3.5-10.8) 10^3/ul RBC 3.57 L (4.0-5.4) 10^6/ul Hgb 12.3 (12.0-16.0) g/dl Hct 34 L (35-47) % MCV 94 (80-97) fL MCH 35 H (27-31) pg MCHC 37 H (31-36) g/dl RDW 14 (10.5-15) % Plt Count 90 L (150-450) 10^3/ul MPV 7 L (7.4-10.4) um3 Neut % (Auto) 82.0 (38-83) % Lymph % (Auto) 10.4 L (25-47) % [place] % (Auto) 7.0 (1-9) % Eos % (Auto) 0.4 (0-6) % Baso % (Auto) 0.2 (0-2) % Absolute Neuts (auto) 7.3 (1.5-7.7) 10^3/ul Absolute Lymphs (auto) 0.9 L (1.0-4.8) 10^3/ul Absolute Monos (auto) 0.6 (0-0.8) 10^3/ul Absolute Eos (auto) 0 (0-0.6) 10^3/ul Absolute Basos (auto) 0 (0-0.2) 10^3/ul Absolute Nucleated RBC 0 10^3/ul Nucleated RBC % 0 Hem Pathologist Commnt Pending INR (Anticoag Therapy) (0.89-1.11) Sodium 138 (133-145) mmol/L Potassium 3.8 (3.5-5.0) mmol/L Chloride 102 (101-111) mmol/L Carbon Dioxide 29 (22-32) mmol/L Anion Gap 7 (2-11) mmol/L BUN 5 L (6-24) mg/dL Creatinine 0.51 (0.51-0.95) mg/dL Est GFR ( Amer) 157.1 (>60) Est GFR (Non-Af Amer) 122.2 (>60) BUN/Creatinine Ratio 9.8 (8-20) Glucose 94 (70-100) mg/dL Lactic Acid 0.8 (0.5-2.0) mmol/L Calcium 9.2 (8.6-10.3) mg/dL Magnesium 1.8 L (1.9-2.7) mg/dL Total Bilirubin 3.80 H (0.2-1.0) mg/dL Direct Bilirubin 0.80 H (0.03-0.18) mg/dL AST 31 (13-39) U/L ALT 25 (7-52) U/L Alkaline Phosphatase 50 (34-104) U/L Ammonia (16-53) mol/L Troponin I 0.00 (<0.04) ng/mL Total Protein 7.1 (6.4-8.9) g/dL Albumin 4.3 (3.2-5.2) g/dL Globulin 2.8 (2-4) g/dL Albumin/Globulin Ratio 1.5 (1-3) TSH 1.88 (0.34-5.60) mcIU/mL Urine Color Urine Appearance Urine pH (5-9) Ur Specific [place] (1.010-1.030) Urine Protein (Negative) Urine Ketones (Negative) Urine Blood (Negative) Urine Nitrate (Negative) Urine Bilirubin (Negative) Urine Urobilinogen (Negative) Ur Leukocyte Esterase (Negative) Urine Glucose (Negative) Serum Alcohol < 10 (<10) mg/dL 02/13/17 02/13/17 02/13/17 Range/Units 13:50 17:39 18:06 WBC (3.5-10.8) 10^3/ul RBC (4.0-5.4) 10^6/ul Hgb (12.0-16.0) g/dl Hct (35-47) % MCV (80-97) fL MCH (27-31) pg MCHC (31-36) g/dl RDW (10.5-15) % Plt Count (150-450) 10^3/ul MPV (7.4-10.4) um3 Neut % (Auto) (38-83) % Lymph % (Auto) (25-47) % [place] % (Auto) (1-9) % Eos % (Auto) (0-6) % Baso % (Auto) (0-2) % Absolute Neuts (auto) (1.5-7.7) 10^3/ul Absolute Lymphs (auto) (1.0-4.8) 10^3/ul Absolute Monos (auto) (0-0.8) 10^3/ul Absolute Eos (auto) (0-0.6) 10^3/ul Absolute Basos (auto) (0-0.2) 10^3/ul Absolute Nucleated RBC 10^3/ul Nucleated RBC % Hem Pathologist Commnt INR (Anticoag Therapy) 1.11 (0.89-1.11) Sodium (133-145) mmol/L Potassium (3.5-5.0) mmol/L Chloride (101-111) mmol/L Carbon Dioxide (22-32) mmol/L Anion Gap (2-11) mmol/L BUN (6-24) mg/dL Creatinine (0.51-0.95) mg/dL Est GFR ( Amer) (>60) Est GFR (Non-Af Amer) (>60) BUN/Creatinine Ratio (8-20) Glucose (70-100) mg/dL Lactic Acid (0.5-2.0) mmol/L Calcium (8.6-10.3) mg/dL Magnesium (1.9-2.7) mg/dL Total Bilirubin (0.2-1.0) mg/dL Direct Bilirubin (0.03-0.18) mg/dL AST (13-39) U/L ALT (7-52) U/L Alkaline Phosphatase (34-104) U/L Ammonia 39 (16-53) mol/L Troponin I (<0.04) ng/mL Total Protein (6.4-8.9) g/dL Albumin (3.2-5.2) g/dL Globulin (2-4) g/dL Albumin/Globulin Ratio (1-3) TSH (0.34-5.60) mcIU/mL Urine Color Yellow Urine Appearance Clear Urine pH 6.0 (5-9) Ur Specific [place] 1.006 L (1.010-1.030) Urine Protein Negative (Negative) Urine Ketones Negative (Negative) Urine Blood Negative (Negative) Urine Nitrate Negative (Negative) Urine Bilirubin Negative (Negative) Urine Urobilinogen Negative (Negative) Ur Leukocyte Esterase Negative (Negative) Urine Glucose Negative (Negative) Serum Alcohol (<10) mg/dL Microbiology and Other Data: Microbiology 02/13/17 21:30 Nasal Screen MRSA (PCR)([facility]IM[facility]) - Final Nasal Mrsa Negative Assess/Plan/Problems-Billing Ms Rosas is a 61 yo F who has a h/o alcohol abuse who presented to the ER approximately 3 weeks after having a fall in [place] (pt's home) with resultant concern for neurologic issues by her daughter and was found to have a subacute right frontal SDH. - Patient Problems (1) Acute subdural hematoma Current Visit: Yes Status: Acute Code(s): I62.01 - NONTRAUMATIC ACUTE SUBDURAL HEMORRHAGE SNOMED Code(s): 97174486 Comment: The patient is s/p opal hole placement yesterday with evacuation of the hematoma. She had a drain which is now removed. Continue neuro checks. OOB to chair starting this AM. Continue phenytoin per neurosurgery. (2) Left shoulder pain Current Visit: Yes Status: Acute Code(s): M25.512 - PAIN IN LEFT SHOULDER SNOMED Code(s): 28504335 Comment: The patient continues to c/o pain in her L shoulder. She is able to flex at the shoulder but can not really abduct the shoulder. ? rotator cuff injury. Once further out from her surgery would get MRI of the shoulder. (3) Thrombocytopenia Current Visit: Yes Status: Acute Code(s): D69.6 - THROMBOCYTOPENIA, UNSPECIFIED SNOMED Code(s): 202415161 Comment: Repeat CBC tomorrow. (4) Hyperbilirubinemia Current Visit: Yes Status: Acute Code(s): E80.6 - OTHER DISORDERS OF BILIRUBIN METABOLISM SNOMED Code(s): 74991845 Comment: Likely related to hemolysis of the SDH. Repeat bilirubin was trending down. Follow intermittently. (5) Alcohol abuse Current Visit: Yes Status: Acute Code(s): F10.10 - ALCOHOL ABUSE, UNCOMPLICATED SNOMED Code(s): 43212248 Comment: There have been no signs of EtOH withdrawal. Continue to monitor. (6) DVT prophylaxis Current Visit: Yes Status: Acute Code(s): JZJ9384 - SNOMED Code(s): 852085760 Comment: SCDs (7) Full code status Current Visit: Yes Status: Acute Code(s): Z78.9 - OTHER SPECIFIED HEALTH STATUS SNOMED Code(s): 405708112
[2017-02-16] MEDS ORDERED: NS 0.9% 1000 ML* 1,000 ML IV ONE (15:54)
[2017-02-16] MEDS: Morphine INJ* 2 MG/ML 1 ML SYRINGE IV PRN (21:19)
[2017-02-17 05:55] LABS: Hematocrit 29 % (35-47); Hemoglobin 10.4 g/dl (12.0-16.0); Mean Corpuscular HGB Conc 36 g/dl (31-36); Mean Corpuscular Hemoglobin 34 pg (27-31); Mean Corpuscular Volume 95 fL (80-97); Mean Platelet Volume 8 um3 (7.4-10.4); Red Blood Count 3.04 10^6/ul (4.0-5.4); Red Cell Distribution Width 14 % (10.5-15); White Blood Count 7.8 10^3/ul (3.5-10.8)
[2017-02-17 05:58] LABS: Comments Flag Yes
[2017-02-17 06:09] LABS: BUN/Creatinine Ratio 12.5 (8-20); Calcium 8.3 mg/dL (8.6-10.3); EGFR Non-African American 161.7 (>60); Potassium 3.2 mmol/L (3.5-5.0)
[2017-02-17] MEDS ORDERED: HYDROcodone/ACETAMIN 5-325 MG* 1 TAB PO PRN (08:12)
[2017-02-17] MEDS ORDERED: Potassium Chlor TAB* 20 MEQ TAB.ER PO ONE (08:12)
--- NOTE | 2017-02-17 08:41 | PN ---
Subjective Date of Service: 02/17/17 Interval History: Pt is feeling well. She has minimal pain at the R frontal [place] hole site. She has more pain in the L shoulder but declines pain medication at this time. No headache or new neurologic symptoms. She has not had a BM in a few days but does not want anything to help her go. Objective Active Medications: Acetaminophen (Tylenol Tab*) 650 mg PO Q6H PRN PRN Reason: PAIN Last Admin: 02/16/17 18:53 Dose: 650 mg Hydrocodone Bitart/Acetaminophen ([place] 5-325 Tab*) 1 tab PO Q4H PRN PRN Reason: PAIN Morphine Sulfate (Morphine Inj (Syringe)*) 2 mg IV Q4H PRN PRN Reason: PAIN - MILD Last Admin: 02/16/17 21:19 Dose: 2 mg Ondansetron HCl (Zofran Inj*) 4 mg IV Q6H PRN PRN Reason: NAUSEA Phenytoin Sodium (Dilantin Cap(*)) 100 mg PO Q12H [place] Last Admin: 02/16/17 23:45 Dose: 100 mg Vital Signs 02/16/17 02/16/17 02/16/17 09:00 09:23 09:30 Temperature Pulse Rate 74 73 Respiratory 15 17 18 Rate Blood Pressure 107/64 (mmHg) O2 Sat by Pulse 99 98 Oximetry 02/16/17 02/16/17 02/16/17 10:00 10:22 10:30 Temperature Pulse Rate 76 76 Respiratory 16 23 19 Rate Blood Pressure 92/64 (mmHg) O2 Sat by Pulse 96 98 Oximetry 02/16/17 02/16/17 02/16/17 11:00 11:19 11:30 Temperature Pulse Rate 78 79 Respiratory 17 17 17 Rate Blood Pressure 95/46 (mmHg) O2 Sat by Pulse 97 98 Oximetry 02/16/17 02/16/17 02/16/17 11:56 12:00 12:29 Temperature 98.4 F Pulse Rate 79 Respiratory 17 17 Rate Blood Pressure 104/50 (mmHg) O2 Sat by Pulse 97 Oximetry 02/16/17 02/16/17 02/16/17 12:30 13:00 13:02 Temperature Pulse Rate 75 82 80 Respiratory 14 14 20 Rate Blood Pressure 101/54 (mmHg) O2 Sat by Pulse 97 95 95 Oximetry 02/16/17 02/16/17 02/16/17 13:06 13:30 14:00 Temperature Pulse Rate 77 77 Respiratory 15 18 16 Rate Blood Pressure 96/52 (mmHg) O2 Sat by Pulse 96 96 Oximetry 02/16/17 02/16/17 02/16/17 14:30 15:00 15:02 Temperature Pulse Rate 76 77 76 Respiratory 18 14 15 Rate Blood Pressure 81/42 77/40 (mmHg) O2 Sat by Pulse 96 95 96 Oximetry 02/16/17 02/16/17 02/16/17 15:03 15:16 15:30 Temperature Pulse Rate 80 80 Respiratory 16 17 17 Rate Blood Pressure 83/42 (mmHg) O2 Sat by Pulse 95 95 Oximetry 02/16/17 02/16/17 02/16/17 15:54 16:00 16:20 Temperature 98.0 F Pulse Rate 75 Respiratory 21 17 18 Rate Blood Pressure 105/52 97/56 (mmHg) O2 Sat by Pulse 97 Oximetry 02/16/17 02/16/17 02/16/17 16:30 16:38 17:00 Temperature Pulse Rate 74 73 Respiratory 15 18 15 Rate Blood Pressure 99/65 (mmHg) O2 Sat by Pulse 99 98 Oximetry 02/16/17 02/16/17 02/16/17 18:00 18:08 19:00 Temperature Pulse Rate 78 Respiratory 18 19 18 Rate Blood Pressure 119/57 106/72 (mmHg) O2 Sat by Pulse 100 Oximetry 02/16/17 02/16/17 02/16/17 19:48 20:00 21:00 Temperature 98.7 F Pulse Rate 76 71 Respiratory 18 19 Rate Blood Pressure 98/49 82/44 (mmHg) O2 Sat by Pulse 95 96 Oximetry 02/16/17 02/16/17 02/16/17 21:15 21:18 21:19 Temperature Pulse Rate 70 75 Respiratory 17 19 16 Rate Blood Pressure 82/47 83/45 (mmHg) O2 Sat by Pulse 96 97 Oximetry 02/16/17 02/16/17 02/16/17 21:30 22:00 22:30 Temperature Pulse Rate 71 72 73 Respiratory 15 14 16 Rate Blood Pressure 89/49 90/46 82/48 (mmHg) O2 Sat by Pulse 95 97 95 Oximetry 02/16/17 02/16/17 02/16/17 23:00 23:03 23:28 Temperature 97.5 F Pulse Rate 75 75 Respiratory 15 15 Rate Blood Pressure 94/50 (mmHg) O2 Sat by Pulse 95 95 Oximetry 02/16/17 02/17/17 02/17/17 23:30 00:00 00:01 Temperature Pulse Rate 70 70 72 Respiratory 15 15 14 Rate Blood Pressure 84/47 87/44 (mmHg) O2 Sat by Pulse 94 96 98 Oximetry 02/17/17 02/17/17 02/17/17 00:30 01:00 01:30 Temperature Pulse Rate 68 67 72 Respiratory 15 15 15 Rate Blood Pressure 95/53 93/51 97/50 (mmHg) O2 Sat by Pulse 94 94 94 Oximetry 02/17/17 02/17/17 02/17/17 02:00 03:00 04:00 Temperature 99.3 F Pulse Rate 82 72 76 Respiratory 19 17 17 Rate Blood Pressure 96/53 101/55 95/52 (mmHg) O2 Sat by Pulse 94 94 94 Oximetry 02/17/17 02/17/17 02/17/17 04:26 05:00 06:00 Temperature 99.3 F Pulse Rate 73 Respiratory 16 15 Rate Blood Pressure 97/47 100/50 (mmHg) O2 Sat by Pulse 95 Oximetry 02/17/17 02/17/17 02/17/17 06:13 07:00 07:59 Temperature Pulse Rate 78 Respiratory 18 18 14 Rate Blood Pressure 100/58 (mmHg) O2 Sat by Pulse 97 Oximetry 02/17/17 08:00 Temperature 99.7 F Pulse Rate Respiratory Rate Blood Pressure (mmHg) O2 Sat by Pulse Oximetry Oxygen Devices in Use Now: None Appearance: Middle aged female lying in bed, NAD Eyes: No Scleral Icterus Ears/Nose/Mouth/Throat: Mucous Membranes Moist Respiratory: Symmetrical Chest Expansion and Respiratory Effort, Clear to Auscultation Cardiovascular: NL Sounds; No Murmurs; No JVD, RRR, No Edema Abdominal: NL Sounds; No Tenderness; No Distention Extremities: No Clubbing, Cyanosis Skin: No Rash or Ulcers, No Nodules or Sclerosis, - - Dressing to R frontal area clean and dry Neurological: Alert and Oriented x 3 Result Diagrams: 02/17/17 05:40 02/17/17 05:40 Additional Lab and Data: Lab Results 02/13/17 02/13/17 02/13/17 Range/Units 13:50 13:50 13:50 WBC 8.9 (3.5-10.8) 10^3/ul RBC 3.57 L (4.0-5.4) 10^6/ul Hgb 12.3 (12.0-16.0) g/dl Hct 34 L (35-47) % MCV 94 (80-97) fL MCH 35 H (27-31) pg MCHC 37 H (31-36) g/dl RDW 14 (10.5-15) % Plt Count 90 L (150-450) 10^3/ul MPV 7 L (7.4-10.4) um3 Neut % (Auto) 82.0 (38-83) % Lymph % (Auto) 10.4 L (25-47) % [place] % (Auto) 7.0 (1-9) % Eos % (Auto) 0.4 (0-6) % Baso % (Auto) 0.2 (0-2) % Absolute Neuts (auto) 7.3 (1.5-7.7) 10^3/ul Absolute Lymphs (auto) 0.9 L (1.0-4.8) 10^3/ul Absolute Monos (auto) 0.6 (0-0.8) 10^3/ul Absolute Eos (auto) 0 (0-0.6) 10^3/ul Absolute Basos (auto) 0 (0-0.2) 10^3/ul Absolute Nucleated RBC 0 10^3/ul Nucleated RBC % 0 Hem Pathologist Commnt Pending INR (Anticoag Therapy) (0.89-1.11) Sodium 138 (133-145) mmol/L Potassium 3.8 (3.5-5.0) mmol/L Chloride 102 (101-111) mmol/L Carbon Dioxide 29 (22-32) mmol/L Anion Gap 7 (2-11) mmol/L BUN 5 L (6-24) mg/dL Creatinine 0.51 (0.51-0.95) mg/dL Est GFR ( Amer) 157.1 (>60) Est GFR (Non-Af Amer) 122.2 (>60) BUN/Creatinine Ratio 9.8 (8-20) Glucose 94 (70-100) mg/dL Lactic Acid 0.8 (0.5-2.0) mmol/L Calcium 9.2 (8.6-10.3) mg/dL Magnesium 1.8 L (1.9-2.7) mg/dL Total Bilirubin 3.80 H (0.2-1.0) mg/dL Direct Bilirubin 0.80 H (0.03-0.18) mg/dL AST 31 (13-39) U/L ALT 25 (7-52) U/L Alkaline Phosphatase 50 (34-104) U/L Ammonia (16-53) mol/L Troponin I 0.00 (<0.04) ng/mL Total Protein 7.1 (6.4-8.9) g/dL Albumin 4.3 (3.2-5.2) g/dL Globulin 2.8 (2-4) g/dL Albumin/Globulin Ratio 1.5 (1-3) TSH 1.88 (0.34-5.60) mcIU/mL Urine Color Urine Appearance Urine pH (5-9) Ur Specific [place] (1.010-1.030) Urine Protein (Negative) Urine Ketones (Negative) Urine Blood (Negative) Urine Nitrate (Negative) Urine Bilirubin (Negative) Urine Urobilinogen (Negative) Ur Leukocyte Esterase (Negative) Urine Glucose (Negative) Serum Alcohol < 10 (<10) mg/dL 02/13/17 02/13/17 02/13/17 Range/Units 13:50 17:39 18:06 WBC (3.5-10.8) 10^3/ul RBC (4.0-5.4) 10^6/ul Hgb (12.0-16.0) g/dl Hct (35-47) % MCV (80-97) fL MCH (27-31) pg MCHC (31-36) g/dl RDW (10.5-15) % Plt Count (150-450) 10^3/ul MPV (7.4-10.4) um3 Neut % (Auto) (38-83) % Lymph % (Auto) (25-47) % [place] % (Auto) (1-9) % Eos % (Auto) (0-6) % Baso % (Auto) (0-2) % Absolute Neuts (auto) (1.5-7.7) 10^3/ul Absolute Lymphs (auto) (1.0-4.8) 10^3/ul Absolute Monos (auto) (0-0.8) 10^3/ul Absolute Eos (auto) (0-0.6) 10^3/ul Absolute Basos (auto) (0-0.2) 10^3/ul Absolute Nucleated RBC 10^3/ul Nucleated RBC % Hem Pathologist Commnt INR (Anticoag Therapy) 1.11 (0.89-1.11) Sodium (133-145) mmol/L Potassium (3.5-5.0) mmol/L Chloride (101-111) mmol/L Carbon Dioxide (22-32) mmol/L Anion Gap (2-11) mmol/L BUN (6-24) mg/dL Creatinine (0.51-0.95) mg/dL Est GFR ( Amer) (>60) Est GFR (Non-Af Amer) (>60) BUN/Creatinine Ratio (8-20) Glucose (70-100) mg/dL Lactic Acid (0.5-2.0) mmol/L Calcium (8.6-10.3) mg/dL Magnesium (1.9-2.7) mg/dL Total Bilirubin (0.2-1.0) mg/dL Direct Bilirubin (0.03-0.18) mg/dL AST (13-39) U/L ALT (7-52) U/L Alkaline Phosphatase (34-104) U/L Ammonia 39 (16-53) mol/L Troponin I (<0.04) ng/mL Total Protein (6.4-8.9) g/dL Albumin (3.2-5.2) g/dL Globulin (2-4) g/dL Albumin/Globulin Ratio (1-3) TSH (0.34-5.60) mcIU/mL Urine Color Yellow Urine Appearance Clear Urine pH 6.0 (5-9) Ur Specific [place] 1.006 L (1.010-1.030) Urine Protein Negative (Negative) Urine Ketones Negative (Negative) Urine Blood Negative (Negative) Urine Nitrate Negative (Negative) Urine Bilirubin Negative (Negative) Urine Urobilinogen Negative (Negative) Ur Leukocyte Esterase Negative (Negative) Urine Glucose Negative (Negative) Serum Alcohol (<10) mg/dL Microbiology and Other Data: Microbiology 02/13/17 21:30 Nasal Screen MRSA (PCR)([facility]) - Final Nasal Mrsa Negative Assess/Plan/Problems-Billing Ms Rosas is a 61 yo F who has a h/o alcohol abuse who presented to the ER approximately 3 weeks after having a fall in [place] (pt's home) with resultant concern for neurologic issues by her daughter and was found to have a subacute right frontal SDH. - Patient Problems (1) Acute subdural hematoma Current Visit: Yes Status: Acute Code(s): I62.01 - NONTRAUMATIC ACUTE SUBDURAL HEMORRHAGE SNOMED Code(s): 53944734 Comment: The patient is s/p opal hole placement. Doing well post op. She can likely be transferred to the floor today. Continue phenytoin per neurosurgery. (2) Left shoulder pain Current Visit: Yes Status: Acute Code(s): M25.512 - PAIN IN LEFT SHOULDER SNOMED Code(s): 19245702 Comment: The patient continues to c/o pain in her L shoulder. She is able to flex at the shoulder but can not really abduct the shoulder. ? rotator cuff injury. ? MRI Sunday if she is still here or as outpatient. (3) Thrombocytopenia Current Visit: Yes Status: Acute Code(s): D69.6 - THROMBOCYTOPENIA, UNSPECIFIED SNOMED Code(s): 587573832 Comment: Thrombocytopenia is stable. (4) Hyperbilirubinemia Current Visit: Yes Status: Acute Code(s): E80.6 - OTHER DISORDERS OF BILIRUBIN METABOLISM SNOMED Code(s): 54389840 Comment: Likely related to hemolysis of the SDH. Repeat bilirubin was trending down. Follow intermittently. (5) Alcohol abuse Current Visit: Yes Status: Acute Code(s): F10.10 - ALCOHOL ABUSE, UNCOMPLICATED SNOMED Code(s): 21530073 Comment: There have been no signs of EtOH withdrawal. Continue to monitor. (6) DVT prophylaxis Current Visit: Yes Status: Acute Code(s): OTU2131 - SNOMED Code(s): 948933798 Comment: SCDs (7) Full code status Current Visit: Yes Status: Acute Code(s): Z78.9 - OTHER SPECIFIED HEALTH STATUS SNOMED Code(s): 381826298
[2017-02-17] MEDS: Acetaminophen TAB* 325 MG PO PRN ×2 (09:23→17:20)
--- NOTE | 2017-02-17 09:24 | PN ---
Progress Note - Progress Note Date of Service: 02/17/17 SOAP: Subjective: []Doing well No complaints of headache Objective: []Wound OK Left shoulder discomfort Neuro intact Assessment: []Satis post op course Plan: []Will switch [facility] to [facility] [place] for floor today,home with family tommorow
[2017-02-17] MEDS: levETIRAcetam TAB* 500 MG PO SCH ×2 (09:35→20:20)
[2017-02-17] MEDS ORDERED: Potassium Chloride LIQUID* 20 MEQ PACKET PO ONE (10:00)
[2017-02-17] MEDS ORDERED: NS 0.9% 500 ML BAG* 500 ML IV ONE (20:03)
[2017-02-18] MEDS: Acetaminophen TAB* 325 MG PO PRN (01:09)
[2017-02-18 08:04] VITALS: BP 99/51
--- NOTE | 2017-02-18 08:38 | PN ---
Subjective Date of Service: 02/18/17 Interval History: Pt is feeling ok. She has minimal pain in the R frontal area but her L shoulder is causing significant pain. She states she walked a little bit in the room but has not walked in the halls. Objective Active Medications: Acetaminophen (Tylenol Tab*) 650 mg PO Q6H PRN PRN Reason: PAIN Last Admin: 02/18/17 01:09 Dose: 650 mg Hydrocodone Bitart/Acetaminophen ([place] 5-325 Tab*) 1 tab PO Q4H PRN PRN Reason: PAIN Last Admin: 02/18/17 07:39 Dose: 1 tab Levetiracetam (Keppra Tab*) 500 mg PO BID [place] Last Admin: 02/17/17 20:20 Dose: 500 mg Morphine Sulfate (Morphine Inj (Syringe)*) 2 mg IV Q4H PRN PRN Reason: PAIN - MILD Last Admin: 02/16/17 21:19 Dose: 2 mg Ondansetron HCl (Zofran Inj*) 4 mg IV Q6H PRN PRN Reason: NAUSEA Vital Signs 02/17/17 02/17/17 02/17/17 09:00 10:00 10:53 Temperature Pulse Rate 85 80 83 Respiratory 20 19 Rate Blood Pressure 104/67 90/56 (mmHg) O2 Sat by Pulse 96 98 100 Oximetry 02/17/17 02/17/17 02/17/17 11:00 11:09 11:11 Temperature Pulse Rate 81 Respiratory 16 19 Rate Blood Pressure 102/59 (mmHg) O2 Sat by Pulse 100 Oximetry 02/17/17 02/17/17 02/17/17 12:00 13:00 13:20 Temperature 99.1 F Pulse Rate 77 78 72 Respiratory 17 14 15 Rate Blood Pressure 91/52 85/51 87/53 (mmHg) O2 Sat by Pulse 98 96 97 Oximetry 02/17/17 02/17/17 02/17/17 13:48 14:00 15:42 Temperature 98.9 F Pulse Rate 75 75 76 Respiratory 17 17 16 Rate Blood Pressure 83/52 86/43 96/49 (mmHg) O2 Sat by Pulse 97 98 99 Oximetry 02/17/17 02/17/17 02/17/17 15:45 16:00 19:43 Temperature 98.2 F Pulse Rate 77 Respiratory 16 18 Rate Blood Pressure 81/42 (mmHg) O2 Sat by Pulse 99 98 Oximetry 02/17/17 02/17/17 02/17/17 19:44 20:04 23:36 Temperature 98.3 F Pulse Rate 80 75 Respiratory 16 16 Rate Blood Pressure 80/42 105/48 (mmHg) O2 Sat by Pulse 98 98 Oximetry 02/18/17 02/18/17 02/18/17 00:00 03:34 07:32 Temperature 98.1 F 98.2 F Pulse Rate 67 69 Respiratory 16 16 Rate Blood Pressure 102/56 99/51 (mmHg) O2 Sat by Pulse 98 96 96 Oximetry 02/18/17 02/18/17 07:39 08:00 Temperature Pulse Rate Respiratory 16 16 Rate Blood Pressure (mmHg) O2 Sat by Pulse 96 Oximetry Oxygen Devices in Use Now: None Appearance: Middle aged female sitting up in bed, NAD Eyes: No Scleral Icterus Ears/Nose/Mouth/Throat: Mucous Membranes Moist Respiratory: Symmetrical Chest Expansion and Respiratory Effort, Clear to Auscultation Cardiovascular: NL Sounds; No Murmurs; No JVD, RRR, No Edema Abdominal: NL Sounds; No Tenderness; No Distention Extremities: No Clubbing, Cyanosis Skin: No Rash or Ulcers, No Nodules or Sclerosis, - - R frontal incision with gerardo in place, no surrounding erythema Neurological: Alert and Oriented x 3 Result Diagrams: 02/17/17 05:40 02/17/17 05:40 Additional Lab and Data: Lab Results 02/13/17 02/13/17 02/13/17 Range/Units 13:50 13:50 13:50 WBC 8.9 (3.5-10.8) 10^3/ul RBC 3.57 L (4.0-5.4) 10^6/ul Hgb 12.3 (12.0-16.0) g/dl Hct 34 L (35-47) % MCV 94 (80-97) fL MCH 35 H (27-31) pg MCHC 37 H (31-36) g/dl RDW 14 (10.5-15) % Plt Count 90 L (150-450) 10^3/ul MPV 7 L (7.4-10.4) um3 Neut % (Auto) 82.0 (38-83) % Lymph % (Auto) 10.4 L (25-47) % [place] % (Auto) 7.0 (1-9) % Eos % (Auto) 0.4 (0-6) % Baso % (Auto) 0.2 (0-2) % Absolute Neuts (auto) 7.3 (1.5-7.7) 10^3/ul Absolute Lymphs (auto) 0.9 L (1.0-4.8) 10^3/ul Absolute Monos (auto) 0.6 (0-0.8) 10^3/ul Absolute Eos (auto) 0 (0-0.6) 10^3/ul Absolute Basos (auto) 0 (0-0.2) 10^3/ul Absolute Nucleated RBC 0 10^3/ul Nucleated RBC % 0 Hem Pathologist Commnt Pending INR (Anticoag Therapy) (0.89-1.11) Sodium 138 (133-145) mmol/L Potassium 3.8 (3.5-5.0) mmol/L Chloride 102 (101-111) mmol/L Carbon Dioxide 29 (22-32) mmol/L Anion Gap 7 (2-11) mmol/L BUN 5 L (6-24) mg/dL Creatinine 0.51 (0.51-0.95) mg/dL Est GFR ( Amer) 157.1 (>60) Est GFR (Non-Af Amer) 122.2 (>60) BUN/Creatinine Ratio 9.8 (8-20) Glucose 94 (70-100) mg/dL Lactic Acid 0.8 (0.5-2.0) mmol/L Calcium 9.2 (8.6-10.3) mg/dL Magnesium 1.8 L (1.9-2.7) mg/dL Total Bilirubin 3.80 H (0.2-1.0) mg/dL Direct Bilirubin 0.80 H (0.03-0.18) mg/dL AST 31 (13-39) U/L ALT 25 (7-52) U/L Alkaline Phosphatase 50 (34-104) U/L Ammonia (16-53) mol/L Troponin I 0.00 (<0.04) ng/mL Total Protein 7.1 (6.4-8.9) g/dL Albumin 4.3 (3.2-5.2) g/dL Globulin 2.8 (2-4) g/dL Albumin/Globulin Ratio 1.5 (1-3) TSH 1.88 (0.34-5.60) mcIU/mL Urine Color Urine Appearance Urine pH (5-9) Ur Specific [place] (1.010-1.030) Urine Protein (Negative) Urine Ketones (Negative) Urine Blood (Negative) Urine Nitrate (Negative) Urine Bilirubin (Negative) Urine Urobilinogen (Negative) Ur Leukocyte Esterase (Negative) Urine Glucose (Negative) Serum Alcohol < 10 (<10) mg/dL 02/13/17 02/13/17 02/13/17 Range/Units 13:50 17:39 18:06 WBC (3.5-10.8) 10^3/ul RBC (4.0-5.4) 10^6/ul Hgb (12.0-16.0) g/dl Hct (35-47) % MCV (80-97) fL MCH (27-31) pg MCHC (31-36) g/dl RDW (10.5-15) % Plt Count (150-450) 10^3/ul MPV (7.4-10.4) um3 Neut % (Auto) (38-83) % Lymph % (Auto) (25-47) % [place]eller % (Auto) (1-9) % Eos % (Auto) (0-6) % Baso % (Auto) (0-2) % Absolute Neuts (auto) (1.5-7.7) 10^3/ul Absolute Lymphs (auto) (1.0-4.8) 10^3/ul Absolute Monos (auto) (0-0.8) 10^3/ul Absolute Eos (auto) (0-0.6) 10^3/ul Absolute Basos (auto) (0-0.2) 10^3/ul Absolute Nucleated RBC 10^3/ul Nucleated RBC % Hem Pathologist Commnt INR (Anticoag Therapy) 1.11 (0.89-1.11) Sodium (133-145) mmol/L Potassium (3.5-5.0) mmol/L Chloride (101-111) mmol/L Carbon Dioxide (22-32) mmol/L Anion Gap (2-11) mmol/L BUN (6-24) mg/dL Creatinine (0.51-0.95) mg/dL Est GFR ( Amer) (>60) Est GFR (Non-Af Amer) (>60) BUN/Creatinine Ratio (8-20) Glucose (70-100) mg/dL Lactic Acid (0.5-2.0) mmol/L Calcium (8.6-10.3) mg/dL Magnesium (1.9-2.7) mg/dL Total Bilirubin (0.2-1.0) mg/dL Direct Bilirubin (0.03-0.18) mg/dL AST (13-39) U/L ALT (7-52) U/L Alkaline Phosphatase (34-104) U/L Ammonia 39 (16-53) mol/L Troponin I (<0.04) ng/mL Total Protein (6.4-8.9) g/dL Albumin (3.2-5.2) g/dL Globulin (2-4) g/dL Albumin/Globulin Ratio (1-3) TSH (0.34-5.60) mcIU/mL Urine Color Yellow Urine Appearance Clear Urine pH 6.0 (5-9) Ur Specific [place] 1.006 L (1.010-1.030) Urine Protein Negative (Negative) Urine Ketones Negative (Negative) Urine Blood Negative (Negative) Urine Nitrate Negative (Negative) Urine Bilirubin Negative (Negative) Urine Urobilinogen Negative (Negative) Ur Leukocyte Esterase Negative (Negative) Urine Glucose Negative (Negative) Serum Alcohol (<10) mg/dL Microbiology and Other Data: Microbiology 02/13/17 21:30 Nasal Screen MRSA (PCR)([facility]) - Final Nasal Mrsa Negative Assess/Plan/Problems-Billing Ms Rosas is a 61 yo F who has a h/o alcohol abuse who presented to the ER approximately 3 weeks after having a fall in [place] (pt's home) with resultant concern for neurologic issues by her daughter and was found to have a subacute right frontal SDH. - Patient Problems (1) Acute subdural hematoma Current Visit: Yes Status: Acute Code(s): I62.01 - NONTRAUMATIC ACUTE SUBDURAL HEMORRHAGE SNOMED Code(s): 16439976 Comment: The patient is s/p opal hole placement. Doing well post op. Continue keppra for now. Will await d/c instructions from Dr. Rodriguez though the patient can likely go home today. (2) Left shoulder pain Current Visit: Yes Status: Acute Code(s): M25.512 - PAIN IN LEFT SHOULDER SNOMED Code(s): 54020720 Comment: The patient continues to c/o pain in her L shoulder. As pt will likely be going home today will ask that she follow up with orthopedics to be evaluated and determine if MRI is warranted. (3) Thrombocytopenia Current Visit: Yes Status: Acute Code(s): D69.6 - THROMBOCYTOPENIA, UNSPECIFIED SNOMED Code(s): 305449634 Comment: Thrombocytopenia is stable. (4) Hyperbilirubinemia Current Visit: Yes Status: Acute Code(s): E80.6 - OTHER DISORDERS OF BILIRUBIN METABOLISM SNOMED Code(s): 78046022 Comment: Likely related to hemolysis of the SDH. (5) Alcohol abuse Current Visit: Yes Status: Acute Code(s): F10.10 - ALCOHOL ABUSE, UNCOMPLICATED SNOMED Code(s): 05392430 Comment: There have been no signs of EtOH withdrawal. Continue to monitor. (6) DVT prophylaxis Current Visit: Yes Status: Acute Code(s): KRK9538 - SNOMED Code(s): 270973879 Comment: SCDs (7) Full code status Current Visit: Yes Status: Acute Code(s): Z78.9 - OTHER SPECIFIED HEALTH STATUS SNOMED Code(s): 188316877
[2017-02-18] MEDS: levETIRAcetam TAB* 500 MG PO SCH (09:03)
--- NOTE | 2017-02-19 04:05 | DS ---
CC: Dr. Rodriguez * DISCHARGE SUMMARY: DATE OF ADMISSION: 02/13/17 DATE OF DISCHARGE: 02/18/17 PRIMARY CARE PROVIDER: None. NEUROSURGEON: Dr. Rodriguez. PRINCIPAL DIAGNOSES: 1. Right frontal subdural hematoma - subacute. 2. Left shoulder pain - possible rotator cuff injury. SECONDARY DIAGNOSES: 1. Thrombocytopenia. 2. Hyperbilirubinemia likely secondary to hemolysis of subdural hematoma. 3. Alcoholism. DISCHARGE MEDICATIONS: 1. Keppra 500 mg p.o. b.i.d. 2. [place] 5/325, one tab p.o. q. 4 hours p.r.n. pain. 3. Tylenol 650 mg p.o. q. 6 hours p.r.n. pain. HOSPITAL COURSE: Ms. Rosas is a 61-year-old female, resident of [place], who had a fall approximately 3 weeks ago. The patient's family noted over the course of the next couple of weeks that she had not been speaking quite normally. She ultimately was brought to the [facility] approximately 1 week prior to presentation to the emergency room. The patient was note to be walking abnormally and was felt to be weak and therefore, was brought to the emergency room for evaluation. In the ER, the patient underwent CT of the brain without contrast, which revealed a subacute right frontoparietal subdural hematoma with mass effect, primarily involving the right frontal lobe with partial effacement of the right lateral ventricle and up to 0.7 cm leftward midline shift at the level of the septum pellucidum. The patient was admitted by the hospitalist service. She has no history of medical care in [place]. The patient was found to have mild hyperbilirubinemia, which was ultimately felt to be due to hemolysis of the subdural hematoma. She was found out to be an alcoholic. She was thrombocytopenic and this was attributed to the alcoholism. The patient also described a fall approximately 3 weeks prior as being a near syncopal episode. The patient underwent transthoracic echocardiogram, which revealed a normal EF of 55% to 60% with normal wall motion contractility. The patient underwent evacuation of the subdural hematoma on 02/15/17. The patient has done well postoperatively. She has been up and ambulating around without any difficulty. The patient was started on initially phenytoin by Dr. Rodriguez and switched to Keppra for discharge. The patient will need to follow up with Dr. Rodriguez in the next 10 to 14 days. The patient also complaining of severe left shoulder pain. The patient states that the pain developed at the time of her fall. She did undergo an x-ray of the left shoulder, which revealed no acute bony findings. I suspect the patient may have rotator cuff injury. I recommend that patient follow up with orthopedics as an outpatient to determine if an MRI would be warranted. FOLLOWUP CONCERNS: The patient is being discharged home today, 02/18/17. She should follow up with Dr. Rodriguez in the next 10 to 14 days and with orthopedics in the next 1 to 2 weeks. ACTIVITY LEVEL: As tolerated. DIET: Regular. CONDITION ON DISCHARGE: Stable and improved. TIME SPENT: 35 minutes were spent discharging this patient. [id number]/[facility] #: [id number] MTDD
--- NOTE | 2017-02-19 09:18 | OP ---
OPERATIVE REPORT: DATE OF OPERATION: 02/15/17. DATE OF : 53. PRIMARY SURGEON: Anthony Rodriguez MD. IRONING PLEATER: SOLEDAD Dorado. ANESTHESIA: General. PRE-OP DIAGNOSIS: Right subacute subdural hematoma. POST-OP DIAGNOSIS: Right subacute subdural hematoma. OPERATIVE PROCEDURE: Right frontal opal hole with drainage of subacute subdural hematoma. DESCRIPTION OF PROCEDURE: After satisfactory general anesthesia was obtained, the patient was place d on the operating table in the supine position with the head supported on a donut and turned to the left side. The right frontal region was then clipped, prepped and draped in a sterile manner for a right frontal opal hole placement. Skin incision was outlined just behind the hairline in the mid frontal region. This vertical incision was infiltrated with 1% Xylocaine with epinephrine, after wh ich it was turned down sharply to the galea. Galea and periosteum were stripped away and a self-ret aining retractor was placed to facilitate exposure. A single opal hole was then placed with a power drill and upon opening the dura, brisk flow of rust colored subdural fluid under pressure was noted . The subdural space was then irrigated, and a ventricular catheter placed into the subdural space and tunneled out anteriorly to serve as a postoperative subdural drain. A piece of Gelfoam was plac ed over the dural defect, after which the subcutaneous tissue was reapproximated with 3-0 Vicryl and the skin closed with skin clips. The estimated blood loss was less than 50 cc and final sponge, pa dding, and needle counts were correct. The patient was taken to the recovery room extubated and in stable condition. [id number]/[facility] #: [id number]
== END 2017-02-18 11:45 | disposition home or self-care (01) | DRG 27 ==
LOC: ED 12:40 → ICU 18:49 → SSU 02-17 11:45
PROVIDERS: ADMIT Hospitalist; ATTEND Hospitalist
PROC: 009 Central Nervous System and Cranial Nerves, Drainage (ICD-10-PCS; principal; 2017-02-15 11:15)
DX: S06.5X0A Traumatic subdural hemorrhage without loss of consciousness, initial encounter (principal); D69.6 Thrombocytopenia, unspecified; W18.30XA Fall on same level, unspecified, initial encounter; Y92.9 Unspecified place or not applicable; S49.92XA Unspecified injury of left shoulder and upper arm, initial encounter; E80.6 Other disorders of bilirubin metabolism; F10.20 Alcohol dependence, uncomplicated; Y90.0 Blood alcohol level of less than 20 mg/100 ml; Z87.891 Personal history of nicotine dependence
CPT/HCPCS: 36415; 70450; 71010; 76705; 80048; 80053; 80076; 80320; 81003; 82140; 82248; 83605; 83735; 84443; 84484; 85025; 85027; 85060; 85610; 87641; 93005; 93306; A9270-GY; G0480; J0690; J1100; J2270; J2704; J3010

== ENCOUNTER 2018-12-31 13:13 | Emergency (ER) | payer OTHER ==
[2018-12-31 14:20] LABS: Hematocrit 29 % (35-47); Hemoglobin 10.7 g/dL (12.0-16.0); Mean Corpuscular HGB Conc 37 g/dL (31-36); Mean Corpuscular Hemoglobin 36 pg (27-31); Mean Corpuscular Volume 99 fL (80-97); Mean Platelet Volume 7.2 fL (7.4-10.4); Platelet Count 84 10^3/uL (150-450); Red Blood Count 2.95 10^6 /uL (3.70-4.87); Red Cell Distribution Width 15 % (10.5-15); White Blood Count 10.7 10^3/uL (3.5-10.8)
[2018-12-31 14:24] LABS: INR 1.26 (0.82-1.09)
[2018-12-31 14:44] LABS: Polychromasia 2+
[2018-12-31 14:58] LABS: Albumin 4.4 g/dL (3.2-5.2); Albumin/Globulin Ratio 1.4 (1-3); BUN/Creatinine Ratio 9.1 (8-20); C Reactive Protein 2.45 mg/L (<8.01); Calcium 8.9 mg/dL (8.6-10.3); EGFR African American 174.2 (>60); Globulin 3.1 g/dL (2-4); Potassium 3.7 mmol/L (3.5-5.0); Total Bilirubin 3.1 mg/dL (0.2-1.0); Total Protein 7.5 g/dL (6.4-8.9)
--- NOTE | 2018-12-31 16:04 | ED ---
Abdominal Pain/Female - HPI Summary HPI Summary: Patient is a 63 y/o F with cough x 2 weeks and recent mild umbilical abdominal pain x 2 days that began during a hard coughing fit. She states that when she coughs she feels a bulging at her umbilicus. She denies fever, nausea, vomiting , diarrhea, and constipation. Her cough has improved. She denies similar sx previously. She denies current medications. Patient states she drinks 3-4 beers daily. - History of Current Complaint Chief Complaint: EDAbdPain Stated Complaint: LOWER ABD PAIN PER PT Time Seen by Provider: 12/31/18 15:44 Hx Obtained From: Patient Onset/Duration: Sudden Onset Timing: Intermittent Episode Lasting Severity Initially: Mild Severity Currently: Mild Pain Intensity: 2 Pain Scale Used: 0-10 Numeric Location: Umbilical Radiates: No Aggravating Factor(s): Other: - coughing Alleviating Factor(s): Nothing Associated Signs and Symptoms: Positive: Cough. Negative: Fever, Chest Pain, Constipation, Urinary Symptoms, Nausea, Vomiting, Diarrhea Allergies/Adverse Reactions: Allergies Allergy/AdvReac Type Severity Reaction Status Date / Time No Known Allergies Allergy Verified 12/31/18 15:49 Home Medications: Home Medications NK [No Home Medications Reported] 12/31/18 [History Confirmed 12/31/18] PMH/Surg Hx/FS Hx/Imm Hx Endocrine/Hematology History: Reports: Hx Blood Transfusions - 1974 after giving Denies: Hx Diabetes, Hx Thyroid Disease Cardiovascular History: Denies: Hx Hypertension Respiratory History: Denies: Hx Asthma, Hx Chronic Obstructive Pulmonary Disease (COPD) GI History: Reports: Hx Gastroesophageal Reflux Disease Denies: Hx Ulcer Musculoskeletal History: Reports: Hx Arthritis Sensory History: Reports: Hx Contacts or Glasses Denies: Hx Hearing Aid Opthamlomology History: Reports: Hx Contacts or Glasses - Surgical History Surgery Procedure, Year, and Place: SUBDURAL HEMATOMA SX - Immunization History Immunizations Up to Date: Yes Infectious Disease History: No Infectious Disease History: Denies: Hx Clostridium Difficile, Hx Hepatitis, Hx Human Immunodeficiency Virus (HIV), Hx of Known/Suspected MRSA, Hx Shingles, Hx Tuberculosis, Hx Known/ Suspected VRE, Hx Known/Suspected VRSA, History Other Infectious Disease, Traveled Outside the [place] in Last 30 Days - Family History Known Family History: Positive: Other - negative CVA Negative: Cardiac Disease - Social History Alcohol Use: Daily - 3-4 beers daily Alcohol Amount: 3 beers per day Substance Use Type: Reports: None Smoking Status (MU): Former Smoker - quit 3 years ago Type: Cigarettes Length of Time of Smoking/Using Tobacco: 39 years Have You Smoked in the Last Year: No Review of Systems Negative: Fever Negative: Chest Pain Positive: Cough Positive: Abdominal Pain - umbilicus. Negative: Vomiting, Diarrhea, Nausea Positive: no symptoms reported All Other Systems Reviewed And Are Negative: Yes Physical Exam Triage Information Reviewed: Yes Vital Signs On Initial Exam: Initial Vitals Temp Pulse Resp BP Pulse Ox 97.8 F 70 18 140/66 99 12/31/18 13:18 12/31/18 13:18 12/31/18 13:18 12/31/18 13:18 12/31/18 13:18 Vital Signs Reviewed: Yes Appearance: Positive: Well-Appearing Skin: Positive: Warm, Dry, Other - diffuse vitiligo visualized to b/l hands, face, and abdomen Head/Face: Positive: Normal Head/Face Inspection Eyes: Positive: Normal ENT: Positive: Normal ENT inspection Respiratory/Lung Sounds: Positive: Clear to Auscultation Cardiovascular: Positive: Normal Abdomen Description: Positive: Nontender, Soft, Other: - Soft, fatty hernia at umbilicus. No redness at site.. Negative: Distended, Guarding, Peritoneal Signs , Pulsatile Mass Bowel Sounds: Positive: Present Musculoskeletal: Positive: Normal Neurological: Positive: Normal Psychiatric: Positive: Normal Diagnostics - Vital Signs Vital Signs Temp Pulse Resp BP Pulse Ox 12/31/18 15:48 80 99 12/31/18 15:47 74 134/74 100 12/31/18 15:04 97.7 F 69 18 123/66 97 12/31/18 13:18 97.8 F 70 18 140/66 99 - Laboratory Lab Results: Lab Results 12/31/18 12/31/18 12/31/18 Range/Units 14:08 14:08 14:08 WBC 10.7 (3.5-10.8) 10^3/uL RBC 2.95 L (3.70-4.87) 10^6 /uL Hgb 10.7 L (12.0-16.0) g/dL Hct 29 L (35-47) % MCV 99 H (80-97) fL MCH 36 H (27-31) pg MCHC 37 H (31-36) g/dL RDW 15 (10.5-15) % Plt Count 84 L (150-450) 10^3/uL MPV 7.2 L (7.4-10.4) fL Neut % (Auto) Pending Lymph % (Auto) Pending [place] % (Auto) Pending Eos % (Auto) Pending Baso % (Auto) Pending Absolute Neuts (auto) Pending Absolute Lymphs (auto) Pending Absolute Monos (auto) Pending Absolute Eos (auto) Pending Absolute Basos (auto) Pending Absolute Nucleated RBC Pending Nucleated RBC % Pending Polychromasia 2+ Anisocytosis 1+ INR (Anticoag Therapy) (0.82-1.09) Sodium 134 L (135-145) mmol/L Potassium 3.7 (3.5-5.0) mmol/L Chloride 101 (101-111) mmol/L Carbon Dioxide 25 (22-32) mmol/L Anion Gap 8 (2-11) mmol/L BUN 4 L (6-24) mg/dL Creatinine 0.44 L (0.51-0.95) mg/dL Est GFR ( Amer) 174.2 (>60) Est GFR (Non-Af Amer) 144.0 (>60) BUN/Creatinine Ratio 9.1 (8-20) Glucose 88 (70-100) mg/dL Lactic Acid 1.4 (0.5-2.0) mmol/L Calcium 8.9 (8.6-10.3) mg/dL Total Bilirubin 3.10 H (0.2-1.0) mg/dL AST 76 H (13-39) U/L ALT 59 H (7-52) U/L Alkaline Phosphatase 65 (34-104) U/L C-Reactive Protein 2.45 (<8.01) mg/L Total Protein 7.5 (6.4-8.9) g/dL Albumin 4.4 (3.2-5.2) g/dL Globulin 3.1 (2-4) g/dL Albumin/Globulin Ratio 1.4 (1-3) Lipase 49 (11.0-82.0) U/L 12/31/18 Range/Units 14:08 WBC (3.5-10.8) 10^3/uL RBC (3.70-4.87) 10^6 /uL Hgb (12.0-16.0) g/dL Hct (35-47) % MCV (80-97) fL MCH (27-31) pg MCHC (31-36) g/dL RDW (10.5-15) % Plt Count (150-450) 10^3/uL MPV (7.4-10.4) fL Neut % (Auto) Lymph % (Auto) [place] % (Auto) Eos % (Auto) Baso % (Auto) Absolute Neuts (auto) Absolute Lymphs (auto) Absolute Monos (auto) Absolute Eos (auto) Absolute Basos (auto) Absolute Nucleated RBC Nucleated RBC % Polychromasia Anisocytosis INR (Anticoag Therapy) 1.26 H (0.82-1.09) Sodium (135-145) mmol/L Potassium (3.5-5.0) mmol/L Chloride (101-111) mmol/L Carbon Dioxide (22-32) mmol/L Anion Gap (2-11) mmol/L BUN (6-24) mg/dL Creatinine (0.51-0.95) mg/dL Est GFR ( Amer) (>60) Est GFR (Non-Af Amer) (>60) BUN/Creatinine Ratio (8-20) Glucose (70-100) mg/dL Lactic Acid (0.5-2.0) mmol/L Calcium (8.6-10.3) mg/dL Total Bilirubin (0.2-1.0) mg/dL AST (13-39) U/L ALT (7-52) U/L Alkaline Phosphatase (34-104) U/L C-Reactive Protein (<8.01) mg/L Total Protein (6.4-8.9) g/dL Albumin (3.2-5.2) g/dL Globulin (2-4) g/dL Albumin/Globulin Ratio (1-3) Lipase (11.0-82.0) U/L Result Diagrams: 12/31/18 14:08 12/31/18 14:08 Lab Statement: Any lab studies that have been ordered have been reviewed, and results considered in the medical decision making process. - EKG No standard instances Cardiac Rate: NL EKG Rhythm: Sinus Rhythm ST Segment: Normal Ectopy: None 1344 Cardiac Rate: NL EKG Rhythm: Sinus Rhythm ST Segment: Normal Ectopy: None Abdominal Pain Fem Course/Dx - Course Course Of Treatment: pt is 63 y/o female with hx bulging umbilicus with intermittent cough x 2 days. Pt has reducible umbilical hernia on exam with standing. Umbilical is soft and without redness. No fevers, vomiting. No concern for incarceration. Pt discharged with instructions to f/u with general surgery or to return to the ED with new or worsening symptoms. Patient was seen in collaboration with the physician health information assistant student. I performed a history of physical and the plan above is indicative of my plan. This note is education courses sales representative of my history and physical. Patient was discharged to follow-up as needed with the surgeon. - Diagnoses Differential Diagnosis: Positive: Appendicitis, Constipation, Gall Bladder Disease, Pneumonia, Other - umbilical hernia Provider Diagnoses: Umbilical hernia Discharge - Sign-Out/Discharge Documenting (check all that apply): Patient Departure Patient Received Moderate/Deep Sedation with Procedure: No - Discharge Plan Condition: Improved Disposition: HOME Patient Education Materials: Umbilical Hernia (ED) Referrals: Akhil Hoffman MD [Medical Doctor] - Additional Instructions: Return with increased pain, redness, fever, vomiting, worse or other concerns. Call to schedule follow-up with the surgeon if you're experiencing pain regularly. - Billing Disposition and Condition Condition: IMPROVED Disposition: Home - Attestation Statements Document Initiated by Fela: Yes Documenting Scribe: TREVIN Parekh Provider For Whom Scribe is Documenting (Include Credential): Dr Armstrong Scribnisa Attestation: Ricky Trent PA-S, scribed for Dr Armstrong on 12/31/18 at 1735. Scribe Documentation Reviewed: Yes Provider Attestation: The documentation as recorded by the Ricky munson PA-S accurately reflects the service I personally performed and the decisions made by Dr Nathaniel collins Status of Scribe Document: Viewed
[2018-12-31 16:05] LABS: ABS Lymphocytes 1.3 10^3/ul (1.0-4.8); ABS Neutrophils 8.7 10^3/ul (1.5-7.7)
[2018-12-31 16:06] LABS: ABS Basophils 0.1 10^3/ul (0-0.2); ABS Eosinophils 0.2 10^3/ul (0-0.6); ABS Monocytes 0.5 10^3/ul (0-0.8); Lymphocyte % 12.1 %
[2018-12-31 16:07] LABS: Eosinophil % 1.6 %
[2018-12-31 16:41] LABS: Urine Appearance Clear; Urine Bacteria Absent (Absent); Urine Bilirubin Negative (Negative); Urine Blood 1+ (Negative); Urine Color Straw; Urine Glucose Negative (Negative); Urine Ketones Negative (Negative); Urine Nitrite Negative (Negative); Urine Protein Negative (Negative); Urine Red Blood Cell Absent (Absent); Urine Specific Gravity 1.001 (1.010-1.030); Urine Urobilinogen Negative (Negative); Urine White Blood Cell Absent (Absent)
[2018-12-31 16:42] VITALS: BP 119/63
== END 2018-12-31 16:42 | disposition home or self-care (01) ==
LOC: ED 13:13
DX: K42.9 Umbilical hernia without obstruction or gangrene (principal); K21.9 Gastro-esophageal reflux disease without esophagitis; Z87.891 Personal history of nicotine dependence
CPT/HCPCS: 36415; 80053; 81003; 81015; 83605; 83690; 85025; 85610; 86140; 93005; 99282

== ENCOUNTER 2019-09-16 14:58 | Emergency (ER) | payer OTHER ==
--- NOTE | 2019-09-16 17:20 | ED ---
Head Injury - HPI Summary HPI Summary: Patient is a 63-year-old female with a history of subdural hematoma 3 years ago after a fall presenting to the ED with head injury and facial injury after a fall. Denies LOC. Denies the use of blood thinners. Patient states she tripped in her driveway, fell face first and hit her lip as well as the right side of her head just above the right eyebrow. She states she is having pain over the hematoma to the right side, but denies any headache. She denies any confusion, memory loss, visual changes, dizziness, nausea. Patient is having a 1/10 pain to the upper lip with mild bleeding. Denies any tooth pain. Endorses a slight discomfort to the nose without difficulty breathing. She denies any other symptoms. She states she did have a subdural hematoma 3 years ago after a fall. This was found to 3 weeks later and she needed to have surgery by Dr. Rodriguez. - History Of Current Complaint Chief Complaint: EDFacialInjury Stated Complaint: FALL-FACIAL INJURIES PER PT Time Seen by Provider: 09/16/19 15:49 Hx Obtained From: Patient Mechanism Of Injury: Direct Blow Onset/Duration: Started Hours Ago Onset of Pain: Hours Severity Currently: Mild Severity Initially: Mild Pain Intensity: 0 Pain Scale Used: 0-10 Numeric Location of Head Injury: Other: - right - Risk Factors SDH Risk Factor: Negative - Allergies/Home Medications Allergies/Adverse Reactions: Allergies Allergy/AdvReac Type Severity Reaction Status Date / Time No Known Allergies Allergy Verified 12/31/18 15:49 PMH/Surg Hx/FS Hx/Imm Hx Previously Healthy: Yes Endocrine/Hematology History: Reports: Hx Blood Transfusions - 1974 after giving Denies: Hx Diabetes, Hx Thyroid Disease Cardiovascular History: Denies: Hx Hypertension Respiratory History: Denies: Hx Asthma, Hx Chronic Obstructive Pulmonary Disease (COPD) GI History: Reports: Hx Gastroesophageal Reflux Disease Denies: Hx Ulcer Musculoskeletal History: Reports: Hx Arthritis Sensory History: Reports: Hx Contacts or Glasses Denies: Hx Hearing Aid Opthamlomology History: Reports: Hx Contacts or Glasses - Surgical History Surgery Procedure, Year, and Place: SUBDURAL HEMATOMA SX - Immunization History Hx Pertussis Vaccination: No Immunizations Up to Date: Yes Infectious Disease History: No Infectious Disease History: Denies: Hx Clostridium Difficile, Hx Hepatitis, Hx Human Immunodeficiency Virus (HIV), Hx of Known/Suspected MRSA, Hx Shingles, Hx Tuberculosis, Hx Known/ Suspected VRE, Hx Known/Suspected VRSA, History Other Infectious Disease, Traveled Outside the [place] in Last 30 Days - Family History Known Family History: Positive: Other - negative CVA Negative: Cardiac Disease - Social History Occupation: Unemployed Lives: With Family Alcohol Use: None Alcohol Amount: 3 beers per day Hx Substance Use: No Substance Use Type: Reports: None Hx Tobacco Use: Yes Smoking Status (MU): Former Smoker Type: Cigarettes Length of Time of Smoking/Using Tobacco: 39 years Have You Smoked in the Last Year: No Review of Systems Negative: Fever, Chills, Fatigue, Skin Diaphoresis Negative: Blurred Vision, Diplopia, Drainage, Erythema Positive: Dental Pain - right dental pain tooth #9, no loosening Negative: Shortness Of Breath, Cough Genitourinary: Negative Positive: no symptoms reported, see HPI Negative: Arthralgia, Myalgia Positive: Headache All Other Systems Reviewed And Are Negative: Yes Physical Exam Triage Information Reviewed: Yes Vital Signs On Initial Exam: Initial Vitals Temp Pulse Resp BP Pulse Ox 97.8 F 85 18 138/80 98 09/16/19 15:04 09/16/19 15:04 09/16/19 15:04 09/16/19 15:04 09/16/19 15:04 Vital Signs Reviewed: Yes Appearance: Positive: Signs of Trauma Skin: Positive: Skin Color Reflects Adequate Perfusion, Other - small laceration inner lip - 0.5cm Head/Face: Positive: Cephalohematoma - right frontal Eyes: Positive: EOMI, DENISE, Conjunctiva Clear Dental: Positive: Gross Decay/Caries @ - throughout, Bleeding - right upper lip Neck: Positive: Supple, No Lymphadenopathy Respiratory/Lung Sounds: Positive: Clear to Auscultation, Breath Sounds Present Cardiovascular: Positive: RRR, Pulses are Symmetrical in both Upper and Lower Extremities Musculoskeletal: Positive: Normal, Strength/ROM Intact Neurological: Positive: Speech Normal Psychiatric: Positive: Normal, Affect/Mood Appropriate AVPU Assessment: Alert Procedures - Sedation Patient Received Moderate/Deep Sedation with Procedure: No Diagnostics - Vital Signs Vital Signs Temp Pulse Resp BP Pulse Ox 09/16/19 15:04 97.8 F 85 18 138/80 98 - Laboratory Lab Statement: Any lab studies that have been ordered have been reviewed, and results considered in the medical decision making process. Head Injury Course/Dx Course Of Treatment: Patient is evaluated for facial trauma and head trauma. Patient appears well, however there is a small 0.5 cm laceration to the inner upper lip. This continues to bleed so a 5-0 fast absorbing gut suture was placed. No evidence of fracture or pain on palpation to the nose. No remy sign. No raccoon sign. No hemotympanum. No pain to the cervical spine. CT brain and CT maxillofacial were obtained. This shows a right periorbital soft tissue swelling. Nasal bridge soft tissue swelling with suspected nondisplaced right nasal bone fracture. Scattered untreated dental and. On his disease. CT brain was also obtained which shows: Small subdural hematoma present along the left tentorium extending inferior to the left temporal lobe without significant mass effect. Called Dr. Florian air conditioning service technician who will call back or come see patient. Pt was informed she may need to wait a few hours and will observe her in the meantime. Pt continues to deny any symptoms and is signed out to SOLEDAD Stringer pending decision from Dr. Florian. - Diagnoses Differential Diagnosis/HQI/PQRI: Intracranial Bleed, Nasal Fracture, Skull Fracture Provider Diagnoses: Subdural hematoma Discharge ED - Sign-Out/Discharge Documenting (check all that apply): Sign-Out Patient Signing out patient TO: Ahmet Zaragoza - Discharge Plan Condition: Fair Referrals: Kendall Blair AMBULATORY ANALYST [Primary Care Provider] - - Billing Disposition and Condition Condition: FAIR - Attestation Statements Provider Attestation: I was available for consult. This patient was seen by the [facility]. The patient was not presented to, seen by, or examined by me. Duke Rocha MD
[2019-09-16 18:07] LABS: ABS Basophils 0.1 10^3/ul (0-0.2); ABS Lymphocytes 0.9 10^3/ul (1.0-4.8); ABS Monocytes 0.3 10^3/ul (0-0.8); ABS Neutrophils 5.2 10^3/ul (1.5-7.7); Eosinophil % 0.6 %; Hematocrit 36 % (35-47); Hemoglobin 13.4 g/dL (12.0-16.0); Mean Corpuscular HGB Conc 37 g/dL (31-36); Mean Corpuscular Hemoglobin 35 pg (27-31); Mean Corpuscular Volume 93 fL (80-97); Mean Platelet Volume 6.8 fL (7.4-10.4); Platelet Count 83 10^3/uL (150-450); Red Blood Count 3.87 10^6 /uL (3.70-4.87); Red Cell Distribution Width 13 % (10-15); White Blood Count 6.6 10^3/uL (3.5-10.8)
[2019-09-16 18:11] LABS: INR 1.27 (0.82-1.09)
[2019-09-16 18:20] LABS: Albumin 4.8 g/dL (3.2-5.2); Albumin/Globulin Ratio 1.4 (1-3); BUN/Creatinine Ratio 6.8 (8-20); Calcium 9.1 mg/dL (8.6-10.3); EGFR African American 174.2 (>60); Globulin 3.4 g/dL (2-4); Potassium 3.8 mmol/L (3.5-5.0); Total Bilirubin 2.7 mg/dL (0.2-1.0); Total Protein 8.2 g/dL (6.4-8.9)
[2019-09-16] MEDS: Acetaminophen TAB* 325 MG PO ONE (20:21)
--- NOTE | 2019-09-16 21:55 | PN ---
Progress Note - Progress Note Date of Service: 09/16/19 Note: Patient signed out to me by Angela ROWE pending evaluation by neurosurgery Dr. Santizo. Neurosurgery recommends observation with repeat CT later, hoever patient has history of chronic thrombocytopenia, likely secondary to chronic EtOH. Current platelets 83. EtOH 336. No stat platelet transfusion available here at [facility]. Platelets have to be ordered from [facility], and only after need has been established. Expected delivery time 3-4 hours. Neurosurgery at [facility] concerned that if emergent surgery to drain subdural hematoma required, the 3 to 4 hour delay required for delivery of platelets from [facility] is a potential hazard. Neurosurgeon at [facility] recommends transfer. Discussed patient with ICU attending Dr. Brasher at [facility] who accepted patient. Patient transferred in stable condition, normal vital signs, neurologically intact, alert and oriented.
[2019-09-16 23:23] VITALS: BP 127/68
--- NOTE | 2019-09-17 00:52 | CONS ---
CONSULTATION REPORT: DATE OF CONSULT: 09/16/19 - EMERGENCY DEPT HISTORY OF PRESENT ILLNESS: The patient is a very pleasant 63-year-old female with a history of subdural hematoma 3 years ago after reported fall, status post drainage. She returned today after her reported fall. She reports that she tripped in her driveway, fell face first and hit her lip as well as the right side of her head. Requested to see the patient by the emergency room team. They got a CT scan of the brain, findings consistent with left small acute tentorial subdural hematoma with extension into temporal fossa. The patient has a history of alcoholism and a history of chronic thrombocytopenia. The patient was seen in the emergency room. History was obtained from the patient's chart, emergency room team, as well as the patient. The patient denies any headaches. Denies any weakness, numbness or tingling of her extremities. Denies any neck pain or back pain. Denies any seizures. She denies any urinary or GI incontinence. PAST MEDICAL HISTORY: GERD, arthritis. PAST SURGICAL HISTORY: Subdural hematoma evacuation by Dr. Rodriguez. ALLERGIES: No known drug allergies. FAMILY HISTORY: Not known. SOCIAL HISTORY: Tobacco: Positive. Alcohol: Positive for 3 beers per day. Recreational drug use: Negative. PHYSICAL EXAM: The patient is not in acute distress. She is awake, alert, oriented x3. Her pupils are equal and reactive. Cranial nerves II through XII are grossly intact. Motor 4 to 5/5 in the lower extremities. No pronator drift. Sensory grossly intact to light touch. Deep tendon reflexes +1 bilaterally. No clonus, no Babinski's. Anil's negative. The patient has no tenderness to palpation in the thoracic or lumbar spine. She has free range of motion of the cervical spine. DIAGNOSTIC STUDIES/LAB DATA: The patient had a CT scan of the brain that revealed small left acute tentorial subdural hematoma with extension into the left temporal fossa without mass effect. The patient had a CT scan of the cervical spine that revealed degenerative disk disease without evidence of fracture or subluxation. The official reading is still pending. The patient also had a CT scan of the thoracic spine without significant evidence of fracture or subluxation. The official reading is pending. The patient had a CT scan of the lumbar spine that did not reveal any evidence of fracture or subluxation. Again, the official reading is not available yet. ASSESSMENT: The patient is a very pleasant 63-year-old female with a history of subdural hematoma evacuation in the past with complaints of a recent fall with CT scan findings consistent with a small left tentorial acute subdural hematoma with extension into the temporal fossa. The patient has a history of alcohol abuse and thrombocytopenia. PLAN: The patient at this point is doing quite well. No surgical intervention is needed. The initial recommendation was of observation with repeat CT scan in the morning and seizure prophylaxis. Because of the patient's thrombocytopenia, emergency room team contacted Hematology who advised that most likely thrombocytopenia is a chronic phenomenon for the patient related to her alcohol abuse. On further questioning with the on-call hospitalist regarding admission, Dr. Christopher contacted the blood bank and they reported the time needed for platelets to be available, maybe in the range of 2 to 3 hours in case of an emergency with the presence of a subdural hematoma in the middle fossa. This time may be critical for the patient, and for this reason, it was decided for the patient to be transferred. Thank you very much for allowing us to participate in the care of this patient. Please do not hesitate to contact our office in case you have any further questions or concerns regarding the care of this patient. [id number]/[facility] #: [id number] THEO
== END 2019-09-16 23:23 | disposition short-term general hospital (02) ==
LOC: ED 14:58
DX: S06.5X9A Traumatic subdural hemorrhage with loss of consciousness of unspecified duration, initial encounter (principal); S01.511A Laceration without foreign body of lip, initial encounter; W01.0XXA Fall on same level from slipping, tripping and stumbling without subsequent striking against object, initial encounter; Y92.008 Other place in unspecified non-institutional (private) residence as the place of occurrence of the external cause; K21.9 Gastro-esophageal reflux disease without esophagitis; Z87.891 Personal history of nicotine dependence
CPT/HCPCS: 12011; 36415; 70450; 70486; 72125; 72128; 72131; 80053; 80320; 85025; 85610; 99284; A9270-GY; G0480

== ENCOUNTER 2023-03-15 08:32 | Inpatient (IN) ==
[2023-03-15 11:16] LABS: Hematocrit 23.9 % (35-45); Hemoglobin 8.9 g/dL (11.5-14.3); Mean Corpuscular Hemoglobin 33.4 pg (27-33); Mean Corpuscular Hgb Conc 37.1 g/dL (31-36); Mean Corpuscular Volume 89.9 fL (80-97); Mean Platelet Volume 6.9 fL (7.5-11.2); Platelet Count 118 10^3/uL (150-450); Red Blood Count 2.66 10^6/uL (3.63-4.92); Red Cell Distribution Width 14.9 % (12-17); White Blood Count 12.3 10^3/uL (3.8-11.8)
[2023-03-15 11:28] LABS: Activated Partial Thrombo Time 27.2 seconds (26.0-38.0); INR 1.3 (0.88-1.18)
[2023-03-15 11:30] LABS: Albumin 3.6 g/dL (3.2-5.2); Albumin/Globulin Ratio 1.3 (1-3); Calcium 8.5 mg/dL (8.6-10.3); Creatinine, Serum 1.67 mg/dL (0.51-0.95); Globulin 2.8 g/dL (2-4); Potassium 5.8 mmol/L (3.5-5.0); Total Protein 6.4 g/dL (6.4-8.9); eGFR CKD-EPI 33.2 (>60)
[2023-03-15] MEDS ORDERED: Al Hydrox/Mg Hydrox/Simet LIQ 30 ML UDC PO ONE (12:43)
[2023-03-15] MEDS ORDERED: NS 0.9% 500 ml BAG 500 ML IV SCH (13:00)
[2023-03-15 16:21] LABS: Calcium 8.2 mg/dL (8.6-10.3); Creatinine, Serum 1.45 mg/dL (0.51-0.95); Potassium 5.4 mmol/L (3.5-5.0); eGFR CKD-EPI 39.3 (>60)
[2023-03-15 18:26] LABS: Magnesium 2.1 mg/dL (1.9-2.7)
[2023-03-15 18:44] LABS: Direct Bilirubin 0.5 mg/dL (0.03-0.18); Indirect Bilirubin 1.4 mg/dL (0.3-1.0); Total Bilirubin 1.9 mg/dL (0.2-1.0)
[2023-03-15 18:53] LABS: C Reactive Protein 13.72 mg/L (<8.01)
[2023-03-15] MEDS ORDERED: SODIUM ZIRCONIUM CYCLOSILICATE 10 GM PACKET PO ONE (19:10)
[2023-03-15 19:18] LABS: Urine Osmo 358 mOsm/kg (150-1150)
[2023-03-15] MEDS: Heparin 5000 UNITS/ML 1 mL VIAL SUBCUT SCH (20:15)
[2023-03-15 23:28] LABS: Calcium 8.3 mg/dL (8.6-10.3); Creatinine, Serum 1.35 mg/dL (0.51-0.95); Potassium 4.7 mmol/L (3.5-5.0); eGFR CKD-EPI 42.8 (>60)
[2023-03-15] MEDS ORDERED: Saline NASAL SPRAY 0.65% BTL BOTH NARES PRN (23:41)
[2023-03-16 06:21] LABS: ALT 14 U/L (7-52); AST 17 U/L (13-39); Albumin 3.1 g/dL (3.2-5.2); Albumin/Globulin Ratio 1.3 (1-3); Alkaline Phosphatase 61 U/L (35-149); Anion Gap 6 mmol/L (2-16); Blood Urea Nitrogen 30 mg/dL (6-24); CO2 Carbon Dioxide 22 mmol/L (22-32); Calcium 8.2 mg/dL (8.6-10.3); Chloride 95 mmol/L (101-111); Creatinine, Serum 1.28 mg/dL (0.51-0.95); Globulin 2.4 g/dL (2-4); Glucose 81 mg/dL (70-100); Magnesium 2.2 mg/dL (1.9-2.7); Potassium 5.1 mmol/L (3.5-5.0); Sodium 123 mmol/L (135-145); Total Protein 5.5 g/dL (6.4-8.9); eGFR CKD-EPI 45.6 (>60)
[2023-03-16 06:57] LABS: ABS Eosinophils 0.2 10^3/uL (0.0-0.5); ABS Lymphocytes 0.7 10^3/uL (1.0-4.8); ABS Monocytes 0.5 10^3/uL (0.0-0.9); ABS Neutrophils 5.1 10^3/uL (1.5-7.6); ABS Nucleated RBC 0.01 10^3/ul; Eosinophil % 2.6 %; Hematocrit 20.2 % (35-45); Hemoglobin 7.5 g/dL (11.5-14.3); Lymphocyte % 11.2 %; Mean Corpuscular Hemoglobin 33.5 pg (27-33); Mean Corpuscular Hgb Conc 37.3 g/dL (31-36); Mean Corpuscular Volume 89.8 fL (80-97); Mean Platelet Volume 7.1 fL (7.5-11.2); Nucleated Red Blood Cells % 0.1 /100 WBC (0.0-0.4); Platelet Count 97 10^3/uL (150-450); Red Blood Count 2.25 10^6/uL (3.63-4.92); Red Cell Distribution Width 14.5 % (12-17); White Blood Count 6.5 10^3/uL (3.8-11.8)
[2023-03-16] MEDS: Fluticasone NASAL SPRAY 50MCG 16 gm SPRAY BTL INTRANASAL SCH (09:13)
[2023-03-16] MEDS: Heparin 5000 UNITS/ML 1 mL VIAL SUBCUT SCH ×2 (09:13→21:12)
[2023-03-16] MEDS ORDERED: fentaNYL 100 mcg/2 ml 50 MCG/ML VIAL IV SLOW PU ONE (12:05)
[2023-03-16] MEDS ORDERED: Midazolam 10 mg/10 ml VIAL 1 mg/ml 10 ml VIAL (10 mg) IV SLOW PU ONE (12:05)
[2023-03-16] MEDS ORDERED: Midazolam 10 mg/10 ml VIAL 1 mg/ml 10 ml VIAL (10 mg) ONE (17:03)
[2023-03-16] MEDS ORDERED: fentaNYL 100 mcg/2 ml 50 MCG/ML VIAL ONE (17:03)
[2023-03-16 17:18] LABS: Folate > 20.00 ng/mL (5.90-24.80)
[2023-03-16 17:20] LABS: Vitamin B12 532 pg/mL (180-914)
[2023-03-17 06:35] LABS: ABS Eosinophils 0.1 10^3/uL (0.0-0.5); ABS Lymphocytes 0.5 10^3/uL (1.0-4.8); ABS Monocytes 0.4 10^3/uL (0.0-0.9); ABS Neutrophils 5.2 10^3/uL (1.5-7.6); Eosinophil % 2.2 %; Hematocrit 20.1 % (35-45); Hemoglobin 7.4 g/dL (11.5-14.3); Lymphocyte % 8.2 %; Mean Corpuscular Hemoglobin 33.4 pg (27-33); Mean Corpuscular Hgb Conc 37.1 g/dL (31-36); Platelet Count 103 10^3/uL (150-450); Red Blood Count 2.23 10^6/uL (3.63-4.92); Red Cell Distribution Width 14.5 % (12-17); White Blood Count 6.2 10^3/uL (3.8-11.8)
[2023-03-17 06:49] LABS: Albumin 2.9 g/dL (3.2-5.2); Albumin/Globulin Ratio 1.3 (1-3); Calcium 7.8 mg/dL (8.6-10.3); Creatinine, Serum 1.28 mg/dL (0.51-0.95); Globulin 2.2 g/dL (2-4); Total Bilirubin 1.2 mg/dL (0.2-1.0); Total Protein 5.1 g/dL (6.4-8.9); eGFR CKD-EPI 45.6 (>60)
[2023-03-17] MEDS: Heparin 5000 UNITS/ML 1 mL VIAL SUBCUT SCH (08:27)
[2023-03-17] MEDS: Fluticasone NASAL SPRAY 50MCG 16 gm SPRAY BTL INTRANASAL SCH (08:28)
[2023-03-17 10:48] VITALS: BP 86/38
== END 2023-03-17 11:47 | disposition home or self-care (01) | DRG 375 ==
LOC: EDHOLD 08:32 → ED 08:32 → MEDTELE 20:50
PROVIDERS: ADMIT Student in an Organized Health Care Education/Training Program; ATTEND Student in an Organized Health Care Education/Training Program

== ENCOUNTER 2023-07-22 07:59 | Inpatient (IN) ==
[2023-07-22] MEDS ORDERED: Morphine 2 MG/ML SYRINGE IV ONE (08:30)
[2023-07-22] MEDS ORDERED: Ondansetron 4 mg VIAL 2 MG/ML 2 ml VIAL IV ONE (08:30)
[2023-07-22] MEDS ORDERED: fentaNYL 100 mcg/2 ml 50 MCG/ML VIAL IV SLOW PU ONE ×2 (08:52→12:28)
[2023-07-22] MEDS ORDERED: NS 0.9% 1000 ml BAG 1,000 ML IV ONE (08:52)
[2023-07-22 09:01] LABS: ABS Eosinophils 0.1 10^3/uL (0.0-0.5); ABS Lymphocytes 0.2 10^3/uL (1.0-4.8); ABS Monocytes 0.4 10^3/uL (0.0-0.9); ABS Neutrophils 6.3 10^3/uL (1.5-7.6); Hematocrit 22.9 % (35-45); Lymphocyte % 2.8 %; Mean Corpuscular Hemoglobin 32.8 pg (27-33); Mean Corpuscular Hgb Conc 35.2 g/dL (31-36); Mean Corpuscular Volume 93.2 fL (80-97); Platelet Count 82 10^3/uL (150-450); Red Blood Count 2.45 10^6/uL (3.63-4.92); Red Cell Distribution Width 20.5 % (12-17); White Blood Count 6.9 10^3/uL (3.8-11.8)
[2023-07-22 09:18] LABS: Albumin 3.2 g/dL (3.2-5.2); Albumin/Globulin Ratio 1.3 (1-3); C Reactive Protein 20.66 mg/L (<8.01); Calcium 8.1 mg/dL (8.6-10.3); Creatinine, Serum 1.73 mg/dL (0.51-0.95); Globulin 2.5 g/dL (2-4); Magnesium 1.9 mg/dL (1.9-2.7); Potassium 4.3 mmol/L (3.5-5.0); Total Bilirubin 1.8 mg/dL (0.2-1.0); Total Protein 5.7 g/dL (6.4-8.9); eGFR CKD-EPI 31.8 (>60)
[2023-07-22 09:31] LABS: INR 1.19 (0.83-1.13)
[2023-07-22] MEDS ORDERED: Iodixanol (CONTRAST) 320 MG/ML 100 ML SDV IV ONE (09:36)
[2023-07-22] MEDS ORDERED: fentaNYL 100 mcg/2 ml 50 MCG/ML VIAL ONE (09:40)
[2023-07-22] MEDS: fentaNYL 100 mcg/2 ml 50 MCG/ML VIAL IV SLOW PU PRN ×3 (09:44→12:27)
[2023-07-22] MEDS ORDERED: Senna TAB 8.6 mg TAB PO PRN (12:27)
[2023-07-22] MEDS ORDERED: Morphine ORAL CONCENTRATE 5 MG/0.25 ML ORAL.SYRIN SL PRN (12:27)
[2023-07-22] MEDS ORDERED: fentaNYL 100 mcg/2 ml 50 MCG/ML VIAL IV SLOW PU PRN (12:28)
[2023-07-22] MEDS: Morphine ORAL CONCENTRATE 5 MG/0.25 ML ORAL.SYRIN SL SCH ×3 (13:40→21:02)
[2023-07-22 16:27] LABS: Urine Appearance Clear; Urine Bilirubin Negative (Negative); Urine Blood Negative (Negative); Urine Color Yellow; Urine Glucose Negative (Negative); Urine Ketones Negative (Negative); Urine Nitrite Negative (Negative); Urine Protein Negative (Negative); Urine Specific Gravity 1.034 (1.002-1.030); Urine Urobilinogen Negative (Negative)
[2023-07-22] MEDS: Ondansetron 4 mg VIAL 2 MG/ML 2 ml VIAL IV PRN ×2 (17:14→21:03)
[2023-07-22 19:04] LABS: Urine Bacteria Absent (Absent); Urine Red Blood Cell Trace(0-2/hpf) (Absent); Urine Squamous Epithelial Cell Present (Absent); Urine White Blood Cell Trace(0-5/hpf) (Absent)
[2023-07-23] MEDS: Morphine ORAL CONCENTRATE 5 MG/0.25 ML ORAL.SYRIN SL SCH ×6 (01:44→20:24)
[2023-07-23] MEDS: Ondansetron 4 mg VIAL 2 MG/ML 2 ml VIAL IV PRN (01:44)
[2023-07-23] MEDS ORDERED: Metoclopramide 5 MG/ML VIAL (10 mg) IV PRN (05:22)
[2023-07-23] MEDS ORDERED: LORazepam 2 mg VIAL 1 ml IV PUSH ONE (11:52)
[2023-07-23] MEDS ORDERED: Lorazepam PYXIS KEY PRN (11:52)
[2023-07-23] MEDS: Scopolamine 1 mg/72hr PATCH TRANSDERM SCH (12:25)
[2023-07-23] MEDS: Ondansetron ODT 4 mg TAB 4 MG TAB SL PRN (20:23)
[2023-07-24] MEDS: Morphine ORAL CONCENTRATE 5 MG/0.25 ML ORAL.SYRIN SL SCH ×5 (01:24→18:10)
[2023-07-24] MEDS: Ondansetron ODT 4 mg TAB 4 MG TAB SL PRN (19:33)
[2023-07-25 06:48] LABS: Albumin 2.6 g/dL (3.2-5.2); Albumin/Globulin Ratio 1.2 (1-3); Calcium 7.7 mg/dL (8.6-10.3); Creatinine, Serum 1.92 mg/dL (0.51-0.95); Globulin 2.1 g/dL (2-4); Potassium 5.1 mmol/L (3.5-5.0); Total Bilirubin 1.3 mg/dL (0.2-1.0); Total Protein 4.7 g/dL (6.4-8.9); eGFR CKD-EPI 28.1 (>60)
[2023-07-25 07:25] LABS: ABS Eosinophils 0.2 10^3/uL (0.0-0.5); ABS Lymphocytes 0.4 10^3/uL (1.0-4.8); ABS Monocytes 0.4 10^3/uL (0.0-0.9); ABS Neutrophils 4.5 10^3/uL (1.5-7.6); Eosinophil % 3.1 %; Hemoglobin 6.5 g/dL (11.5-14.3); Lymphocyte % 8.1 %; Mean Corpuscular Hemoglobin 33.3 pg (27-33); Mean Corpuscular Hgb Conc 35.9 g/dL (31-36); Mean Corpuscular Volume 92.8 fL (80-97); Mean Platelet Volume 7.1 fL (7.5-11.2); Platelet Count 62 10^3/uL (150-450); Red Blood Count 1.94 10^6/uL (3.63-4.92); Red Cell Distribution Width 20.2 % (12-17); White Blood Count 5.4 10^3/uL (3.8-11.8)
[2023-07-25] MEDS: Ondansetron ODT 4 mg TAB 4 MG TAB SL PRN (14:19)
[2023-07-25 14:26] LABS: Hematocrit 21.2 % (35-45); Hemoglobin 7.5 g/dL (11.5-14.3)
[2023-07-25 14:33] LABS: INR 1.19 (0.83-1.13)
[2023-07-25 14:54] LABS: Creatinine, Serum 1.94 mg/dL (0.51-0.95); Potassium 4.6 mmol/L (3.5-5.0); eGFR CKD-EPI 27.7 (>60)
[2023-07-25] MEDS ORDERED: Albumin Human 25% 25 GM/100 ML BTL IV ONE (16:05)
[2023-07-26 09:08] LABS: Albumin 2.9 g/dL (3.2-5.2); Albumin/Globulin Ratio 1.5 (1-3); Calcium 7.8 mg/dL (8.6-10.3); Creatinine, Serum 2.01 mg/dL (0.51-0.95); Globulin 1.9 g/dL (2-4); Potassium 5.1 mmol/L (3.5-5.0); Total Bilirubin 1.7 mg/dL (0.2-1.0); Total Protein 4.8 g/dL (6.4-8.9); eGFR CKD-EPI 26.6 (>60)
[2023-07-26 09:16] LABS: Hematocrit 18.4 % (35-45); Hemoglobin 6.5 g/dL (11.5-14.3); Mean Corpuscular Hemoglobin 33.1 pg (27-33); Mean Corpuscular Hgb Conc 35.5 g/dL (31-36); Mean Corpuscular Volume 93.4 fL (80-97); Mean Platelet Volume 6.9 fL (7.5-11.2); Platelet Count 73 10^3/uL (150-450); Red Blood Count 1.97 10^6/uL (3.63-4.92); Red Cell Distribution Width 20.5 % (12-17); White Blood Count 5.3 10^3/uL (3.8-11.8)
[2023-07-26] MEDS: Ondansetron ODT 4 mg TAB 4 MG TAB SL PRN (11:23)
[2023-07-26] MEDS: Scopolamine 1 mg/72hr PATCH TRANSDERM SCH (11:24)
[2023-07-26 12:14] LABS: Hematocrit 19.5 % (35-45); Hemoglobin 6.9 g/dL (11.5-14.3)
[2023-07-26 18:41] VITALS: BP 88/45
== END 2023-07-26 20:00 | disposition home or self-care (01) | DRG 951 ==
LOC: EDHOLD 07:59 → ED 07:59 → SUATTDRO 12:25 → SSU 12:25 → SUATTDRO 07-25 14:37
PROVIDERS: ADMIT Student in an Organized Health Care Education/Training Program; ATTEND Hospitalist

== ENCOUNTER 2023-10-27 22:25 | Observation (INO) ==
[2023-10-27] MEDS: Lactated Ringers 1000 ml BAG 1,000 ML IV ONE (23:45)
[2023-10-28 00:11] LABS: Activated Partial Thrombo Time 25.3 seconds (26.0-38.0); INR 1.11 (0.83-1.13)
[2023-10-28 00:17] LABS: ABS Eosinophils 0.1 10^3/uL (0.0-0.5); ABS Lymphocytes 0.5 10^3/uL (1.0-4.8); ABS Monocytes 0.4 10^3/uL (0.0-0.9); ABS Neutrophils 5.8 10^3/uL (1.5-7.6); ABS Nucleated RBC 0.02 10^3/ul; Hematocrit 21.4 % (35-45); Hemoglobin 7.7 g/dL (11.5-14.3); Lymphocyte % 6.7 %; Mean Corpuscular Hemoglobin 35.1 pg (27-33); Mean Corpuscular Hgb Conc 36.1 g/dL (31-36); Mean Corpuscular Volume 97.2 fL (80-97); Nucleated Red Blood Cells % 0.3 %/100WBC (0.0-0.8); Platelet Count 106 10^3/uL (150-450); Red Cell Distribution Width 14.7 % (12-17); White Blood Count 6.7 10^3/uL (3.8-11.8)
[2023-10-28 00:34] LABS: Albumin 3.1 g/dL (3.2-5.2); Albumin/Globulin Ratio 1.4 (1-3); Calcium 7.7 mg/dL (8.6-10.3); Creatinine, Serum 2.61 mg/dL (0.51-0.95); Globulin 2.2 g/dL (2-4); Potassium 5.1 mmol/L (3.5-5.0); Total Bilirubin 1.3 mg/dL (0.2-1.0); Total Protein 5.3 g/dL (6.4-8.9); eGFR CKD-EPI 19.3 (>60)
[2023-10-28] MEDS: fentaNYL 100 mcg/2 ml 50 MCG/ML VIAL IV SLOW PU ONE (00:52)
[2023-10-28] MEDS: Lactated Ringers 1000 ml BAG 500 ML IV ONE (00:58)
[2023-10-28 02:26] LABS: High Sensitivity Troponin 1 Hr 5 pg/mL (<15)
[2023-10-28] MEDS: Lactated Ringers 1000 ml BAG 1,000 ML IV ONE (05:59)
[2023-10-28 06:45] LABS: Calcium 7.5 mg/dL (8.6-10.3); Creatinine, Serum 2.27 mg/dL (0.51-0.95); Potassium 5.4 mmol/L (3.5-5.0); eGFR CKD-EPI 22.8 (>60)
[2023-10-28 08:09] LABS: Urine Appearance Clear; Urine Bilirubin Negative (Negative); Urine Blood Negative (Negative); Urine Color Light-Yellow; Urine Glucose Negative (Negative); Urine Ketones Negative (Negative); Urine Nitrite Negative (Negative); Urine Protein Negative (Negative); Urine Specific Gravity 1.011 (1.002-1.030); Urine Urobilinogen Negative (Negative)
[2023-10-28] MEDS: Docusate LIQ 100 MG/10 ML UDC PO SCH (12:47)
[2023-10-28] MEDS: Morphine ORAL CONCENTRATE 5 MG/0.25 ML ORAL.SYRIN PO PRN (17:20)
[2023-10-28] MEDS: Scopolamine 1 mg/72hr PATCH TRANSDERM SCH (17:21)
[2023-10-28] MEDS ORDERED: Morphine ORAL CONCENTRATE 5 MG/0.25 ML ORAL.SYRIN PO PRN (19:42)
[2023-10-28] MEDS: Senna TAB 8.6 mg TAB PO PRN (20:13)
[2023-10-28] MEDS: Morphine ORAL CONCENTRATE 5 MG/0.25 ML ORAL.SYRIN PO ONE (20:14)
[2023-10-29] MEDS: Pneumococcal 20-Valent Conj 0.5 ML SYR Vaccine IM ONE (09:29)
[2023-10-29] MEDS: COVID VAC 23-24(12+)(Moderna) SYR 0.5 ML IM ONE (09:29)
[2023-10-29] MEDS: Influenza vaccine *QUAD* *2023-24* 0.5 ML SYRINGE IM ONE (09:29)
[2023-10-29] MEDS: Vitamin THERAPEUTIC TAB PO SCH (10:51)
[2023-10-29] MEDS: Fluticasone NASAL SPRAY 50MCG 16 gm SPRAY BTL INTRANASAL SCH (10:51)
[2023-10-30] MEDS: Ondansetron 4 mg VIAL 2 MG/ML 2 ml VIAL IV PRN (03:28)
[2023-10-30 05:53] VITALS: BP 80/52
== END 2023-10-30 10:30 | disposition hospice, home (50) ==
LOC: ED 22:25 → EDHOLD 22:25 → SUATTDRO 10-28 11:33 → MED 10-28 12:59
PROVIDERS: ADMIT Hospitalist; ATTEND Internal Medicine